=== PATIENT | female | born 1950 | race Caucasian/White ===

== ENCOUNTER 2018-06-30 11:42 | Observation (INO) | payer OTHER ==
--- NOTE | 2018-06-30 12:03 | EDPHY ---
H & P Stated Complaint: palpitations dizzy nausea sob x 2-3 days, gen weakness Time Seen by Provider: 06/30/18 12:02 - Personal History Tetanus Vaccine Date: 2000 - Medical/Surgical History Hx Asthma: Yes Hx Chronic Respiratory Disease: No Hx Diabetes: No Hx Cardiac Disease: No Hx Renal Disease: No Hx Cirrhosis: No Hx Alcoholism: No Hx HIV/AIDS: No Hx Splenectomy or Spleen Trauma: No Other PMH: ASTHMA, PTSD, ORTHO SURG, inner ear issue - Social History Smoking Status: Never smoked Constitutional: Initial Vital Signs Temperature (C) 36.0 C 06/30/18 11:45 Heart Rate 86 06/30/18 11:45 Respiratory Rate 20 06/30/18 11:45 Blood Pressure 85/64 L 06/30/18 11:45 O2 Sat (%) 91 L 06/30/18 11:45 O2 Delivery Mode Room Air Allergies/Adverse Reactions: No Known Allergies Allergy (Verified 03/17/13 20:35) Home Medications: Medication Instructions Recorded Albuterol [Proventil Inhaler HFA 2 puffs IH Q4 PRN 03/17/13 (*)] DULoxetine [Cymbalta 60 MG (*)] 60 mg PO DAILY 03/17/13 Cefuroxime Axetil [Ceftin] 500 mg PO BID #14 tablet 05/19/15 Medical Decision Making ED Course/Re-evaluation: CHIEF COMPLAINT: Rapid heart rate, dizzy, weak, low blood pressure HISTORY OF PRESENT ILLNESS: 68-year-old female who says over the last 15+ years she has had intermittent palpitations and rapid heart rate. She was given a prescription for oral diltiazem several years ago and she use the last 1 yesterday. She has had very persistent rapid heart rate over the last week or 2. It is affecting her significantly in terms of her ability to move around and walk around and do anything since she feels very lightheaded dizzy and weak when she is in a rapid rate which is the majority of the time recently. REVIEW OF SYSTEMS: A comprehensive 10 system review of systems is otherwise negative aside from elements mentioned in the history of present illness and medical decision making. PHYSICAL EXAM: HR, BP, O2 Sat, RR. Temp noted General Appearance: Alert, well hydrated, appropriate, and non-toxic appearing. Head: Atraumatic without scalp tenderness or obvious injury Eyes: Pupils equal, round, reactive to light and accommodation, EOMI, no trauma , no injection. Ears: Clear bilaterally, no perforation, normal landmarks Nose: Atraumatic, no rhinorrhea, clear. Throat: There is no erythema or exudates, no lesions, normal tonsils, mucus membranes moist. Neck: Supple, 2+ carotid upstroke, nontender, no lymphadenopathy. Respiratory: No retractions, no distress, no wheezes, and no accessory muscle use. Lungs are clear to auscultation bilaterally. Cardiovascular: Tachycardia but Regular rate and rhythm, no murmurs, rubs, or gallops. Bilateral carotid, radial, dorsalis pedis, and posterior tibial pulses intact. Good capillary refill all extremities. Gastrointestinal: Abdomen is soft, nontender, non-distended, no masses, no rebound, no guarding, no peritoneal signs. Musculoskeletal: Normal active ROM of all extremities, atraumatic. Neurological: Alert, appropriate, and interactive. The patient has normal DTRs and non-focal cranial nerves, motor, sensory, and cerebellar exam. Skin: No rashes, good turgor, no nodules on palpation. Past medical history: schwannoma, supraventricular tachycardia Past surgical history: None Family history: Noncontributory Social history: , retired, does not abuse tobacco drugs or alcohol DIAGNOSTICS/PROCEDURES/CRITICAL CARE TIME: The 12 lead EKG was interpreted by myself. See hard copy and/or "tracemaster" electronic copy for interpretation. The 1st EKG shows sinus set tachycardia at the rate of about 150 it is regular. After adenosine ablation the EKG shows sinus rhythm rate of about 90. She then temporarily went back into an SVT and then converted back to a sinus mechanism. Procedure: Adenosine ablation Indication: Dysrhythmia Risks, benefits, alternatives discussed with the patient and consent obtained. The patient was on a continuous cardiac technician.The patient was on continuous pulse oximetry. The adenosine ablation was performed with 12mg adenosine. The cardioversion was successful temporarily. The patient tolerated the procedure well with no complications. The procedure was performed by myself. DIFFERENTIAL DIAGNOSIS: The differential diagnosis for the patient's narrow complex tachycardia included but was not limited to various causes of sinus tachycardia such as dehydration and medicines, SVT, atrial flutter, atrial fibrillation, pulmonary causes. MEDICAL DECISION MAKING: This patient is hemodynamically unstable when she is in a rapid rhythm. Once I conferred her she feels a lot better her blood pressure improved significantly. Unfortunately, she is not remaining in sinus mechanism and continues to bounce between SVT in sinus. She states that is how she has felt all week. I did give her 12 mg of adenosine which was successful and cardioversion at least transiently. I have now given her 10 mg of diltiazem started on diltiazem drip. I have spoken to Cardiology we will admit her to be considered for an ablation this week. I have admitted her to the hospitalist. I spent a total of 30 minutes of critical care time including but not limited to obtaining history, performing a physical exam, ordering interventions and the bedside monitoring of those interventions, collecting and interpreting tests and discussion with consultants but not including time spent performing procedures. This is independent of PA or AIRCRAFT WORKER time spent with the patient. 12:40 - I spoke with cardiology and the hospitalist service. She will be admitted to Dr. Lee and Dr. Hurley will consult for possible ablation this week. - Data Points Laboratory Results: 06/30/18 06/30/18 06/30/18 12:24 12:15 12:15 WBC Pending RBC Pending Hgb Pending Hct Pending MCV Pending MCH Pending MCHC Pending RDW Pending Plt Count Pending MPV Pending Neut % (Auto) Pending Lymph % (Auto) Pending Lander % (Auto) Pending Eos % (Auto) Pending Baso % (Auto) Pending Nucleat RBC Rel Count Pending Absolute Neuts (auto) Pending Absolute Lymphs (auto) Pending Absolute Monos (auto) Pending Absolute Eos (auto) Pending Absolute Basos (auto) Pending Absolute Nucleated RBC Pending Immature Gran % Pending Immature Gran # Pending Sodium Pending Potassium Pending Chloride Pending Carbon Dioxide Pending Anion Gap Pending BUN Pending Creatinine Pending Estimated GFR Pending Glucose Pending Calcium Pending POC Troponin I 0.02 ng/mL ng/mL (0.00-0.08) NT-Pro-B Natriuret Pep Pending Medications Given: Discontinued Medications Adenosine (Adenosine) 12 mg IVP EDNOW ONE Stop: 06/30/18 12:21 Last Admin: 06/30/18 12:22 Dose: 12 mg Diltiazem HCl (Cardizem 25 Mg/5 Ml Vial) 10 mg IVP EDNOW ONE Stop: 06/30/18 12:31 Last Admin: 06/30/18 12:32 Dose: 10 mg Sodium Chloride (Ns) 1,000 mls @ 0 mls/hr IV ONCE ONE PRN Reason: Wide Open Stop: 06/30/18 12:31 Last Admin: 06/30/18 12:32 Dose: 1,000 mls Point of Care Test Results: Chemistry 06/30/18 12:24 POC Troponin I 0.02 ng/mL ng/mL (0.00-0.08) Departure - Departure Disposition: [facility] Inpatient Acute Clinical Impression: Supraventricular tachycardia Condition: Fair Report Scribed for: Yariel Whitlock Report Scribed by: Mariajose Sidhu Date of Report: 06/30/18 Time of Report: 12:46
[2018-06-30] MEDS ORDERED: ADENOSINE 6 MG/2 ML VIAL ONE (12:14)
[2018-06-30] MEDS ORDERED: ADENOSINE 6 MG/2 ML VIAL IVP ONE (12:20)
[2018-06-30] MEDS ORDERED: DILTIAZEM 25 MG/5 ML VIAL IVP ONE ×2 (12:28→12:30)
[2018-06-30] MEDS ORDERED: NS 1,000 ML IV ONE (12:30)
[2018-06-30] MEDS ORDERED: DILTIAZEM 125 MG in D5W 125 ML IV ONE (12:31)
[2018-06-30 13:24] LABS: PLATELET COUNT 328 10^3/uL (150-400)
[2018-06-30] MEDS ORDERED: ONDANSETRON DISINTEGRATING 4 MG TAB PO PRN (15:52)
[2018-06-30] MEDS ORDERED: ACETAMINOPHEN 325 MG TAB PO PRN (15:52)
[2018-06-30] MEDS ORDERED: ONDANSETRON 4 MG/2 ML VIAL IVP PRN (15:52)
[2018-06-30] MEDS ORDERED: ALBUTEROL 60 PUFFS/8 GM MDI IH PRN (15:56)
--- NOTE | 2018-06-30 16:54 | GHP ---
DATE OF ADMISSION: 06/30/2018 CHIEF COMPLAINT: Palpitations and dizziness. HISTORY OF PRESENT ILLNESS: Ms. Linda is a 68-year-old with a history of SVT. She said it star emily in her 30s and she had minimal episodes up until a few years ago when they were getting slightly more prevalent so her primary care provider started her on short-acting Dilt to be taken on an as-nee ded basis. In 2014, she was given a bottle of 30 and she just took the last 1 a few weeks ago. Over the recent past, from spring through now, she has noted increasing symptoms of SVT associated with d izziness, lightheadedness and palpitations, which are quite severe in nature. These symptoms did sta rt at about the time she started experiencing vertigo from a vestibular schwannoma that was eventuall y diagnosed. Over the last few days, she has gotten the SVT symptoms every day. It has gotten worse and she has become weaker and weaker since to a point where her drove her into the emergency room today for further evaluation. In the emergency department, she was in SVT with a rapi d rate of 150 and symptomatic. She was given adenosine, which did convert her to sinus rhythm; howev er, she bumped right back into SVT within a few more minutes and the ER physician was having difficul ty keeping her in sinus rhythm. She was eventually given IV Dilt and again converted to sinus rhythm and has since stayed in that rhythm. At this point, she is feeling much better, but is being admitt ed to be evaluated by Cardiology for possible ablation. REVIEW OF SYSTEMS: A 10-point review of systems was done and is noted in the HPI. Pertinent positiv es and negatives. Additionally, she is hard of hearing. No cough or shortness of breath, but she di d have a URI a couple weeks ago. No abdominal complaints, urinary/bladder complaints, or bowel middleton es. She does have some mild arthritis and occasional migraine headaches. PAST MEDICAL HISTORY: 1. SVT. 2. Arthritis. 3. Vestibular schwannoma. 4. Migraine headaches. 5. Exercise-induced asthma. PAST SURGICAL HISTORY: Includes orthopedic surgeries. FAMILY HISTORY: Father with heart attacks and strokes, and testicular and lung cancer. Mother with breast cancer. SOCIAL HISTORY: She is . She and her live in [place]. Her primary care provider i s Dr. Baig. They have 2 biological children and they have legally adopted their grand kids, 1 of whom is special needs and can be stressful. She currently works as an senior financial accountant. She does not smo ke. She does not smoke marijuana. She does enjoy alcohol. She typically drinks whiskey, at least 2 drinks per night. She does note that stress makes her SVT quite a bit worse and recently 1 of her g bong kids in college has been calling her more often and it has been quite stressful on her. MEDICATIONS: Albuterol as needed, diltiazem 30 mg as needed for SVT, Cymbalta 60 mg daily, meloxicam daily for arthritis, topiramate 100 mg daily and trazodone 25-50 mg at night. ALLERGIES: No known drug allergies. PHYSICAL EXAMINATION: VITAL SIGNS: She is afebrile. Heart rate currently 82, blood pressure 122/69 , respirations 16. She is 94% on room air. GENERAL: She is a very pleasant 68-year-old woman. She is in no acute distress. HEENT: Atraumatic. Pupils equal. Extraocular movements intact. Mucous membranes moist. Oropharynx clear. NECK: Supple. No adenopathy. No carotid bruits. HEART: Regu lar rate and rhythm. There is a very soft systolic murmur. LUNGS: Clear bilaterally without wheeze , rhonchi, or rales. SPINE: Nontender to palpation. ABDOMEN: Soft, nontender, nondistended. No m asses. EXTREMITIES: No clubbing, cyanosis, or edema. MUSCULOSKELETAL: No joint effusions or defor mities. NEUROLOGIC: Speech is fluent. She moves all 4 extremities. SKIN: Intact. No rash. PSYC HIATRIC: Mood is appropriate. LABORATORY DATA: CBC is within normal limits. Electrolytes and renal function are normal. BNP is a t 853. Troponin is normal at 0.02. ASSESSMENT AND PLAN: 68-year-old woman presents with worsening recurrent labile SVT that is quite sy mptomatic. 1. SVT. Discussed with Dr. Hurley who will see her in consultation and feels that with this labile S VT she is appropriate to refer her for possible ablation. Will admit her overnight, place her on dil tiazem short acting, check an echocardiogram in the a.m. and discuss with Dr. Austin regarding possible ablation of her SVT. We will start her on diltiazem 30 mg every 8 hours and continue to monitor her on telemetry. 2. Vestibular schwannoma. She does have followup plan scheduled for radiation therapy of this in future. 3. Migraines, currently on Cymbalta and Topamax. 4. Arthritis. Continue her meloxicam. 5. Exercise-induced asthma. She is completely asymptomatic with clear lungs at this time. /[id number]/MODL
--- NOTE | 2018-06-30 18:15 | SOAPPROG ---
[facility] Progress Note Assessment/Plan: Assessment: Cardiology consult performed and dictated. 68 y/o woman who has had intermittent rapid heart racing since her 30's. Last saw a assistant media planner about ten years ago and had stress test and told normal. She has supply of prn PO Diltiazem she takes for her rapid heart episodes. Last seven days, her heart has raced "all day for hours." She is weak, tired and near syncope. Denies CP, TIA sx or PND. She came to ER and was in narrow complex tachycardia at 143bpm probably PSVT and converted to NSR with IV adenosine. She started having salvos of recurrent PSVT and was given IV diltiazem and started on PO Diltiazem 30mg q8hrs and feels better now. Last sense of heart racing was in ER. Denies current shortness of breath or CP. DDX: symptomatic, frequent PSVT PLANL 1)continue Diltiazem 30mg PO q8hrs 2)echo in AM to make sure has not developed a tachycardic medicated CHF although no S3 or gallop or murmur or sign of volume overload seen on physical exam tonight. 3)EP consult- Norman in AM to do SVT ablation hopefully this hospitalization. Keep NPO after MN in case can do tomorrow. Questions answered for Mrs. Linda. Thanks for consult 06/30/18 18:10 Objective: Vital Signs Temp Pulse Resp BP Pulse Ox 36.4 C 82 16 122/69 H 94 06/30/18 14:25 06/30/18 14:25 06/30/18 14:25 06/30/18 14:25 06/30/18 14:25 Laboratory Results 06/30/18 13:13 06/29/18 06/30/18 07/01/18 05:59 05:59 05:59 Intake Total 1000 Balance 1000 ICD10 Worksheet Patient Problems: Problems Problem Status Onset Supraventricular tachycardia Acute Exacerbation of asthma Acute
[2018-06-30] MEDS: DILTIAZEM 30 MG TAB PO SCH (20:21)
[2018-06-30] MEDS: traZODone 50 MG TAB PO SCH (20:21)
[2018-07-01] MEDS: DILTIAZEM 30 MG TAB PO SCH ×2 (06:21→17:18)
--- NOTE | 2018-07-01 10:03 | PDCARPN ---
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 She presented to ED in SVT and converted with Adenosine. Preliminary echo results per my review demonstrate Posterior mitral valve prolapse, at least moderate eccentric MR anteriorly directed with coanda effect and possible flail chordae. Sana states that her PCP has heard a murmur on exam and had recommended she be seen by Cardiology, which had not been done prior to admission. She has no hx of endocarditis, Phen-Fen use. No hx of Rhematic fever. No family hx of valve disease. She admits to exercise intolerance primarily due to onset of SVT. She denies nino, pnd, orthopnea or LE edema. Reviewed/Discussed With: family, multidisciplinary team Time Spent with Patient: greater than 25 minutes Time Spent with Patient: Greater than 25 minutes spent on this patients care, greater than 50% of time spent counseling, educating, and coordinating care regarding the above mentioned plan. Objective: Vital Signs (8 Hrs) Temp Pulse Resp BP Pulse Ox 07/01/18 08:00 36.8 C 76 15 145/70 H 96 07/01/18 06:21 76 127/104 H 07/01/18 04:00 36.6 C 95 20 127/104 H 94 Intake/Output (24 Hrs) 06/30/18 07/01/18 07/02/18 05:59 05:59 05:59 Intake Total 1500 Balance 1500 Intake: Oral (ml) 500 IV Infused (ml) 1000 Other: Weight 49.3 kg Number of Voids 1 Result Diagrams: 06/30/18 13:13 06/30/18 12:15 - Physical Exam Ears, Nose, Mouth, Throat: moist mucous membranes Cardiovascular: regular rate and rhythm, no rubs, no gallops, systolic murmur, pulses symmetric bilat Respiratory: clear to auscultate bilat Neurologic: AAOx3, CN II-XII grossly intact Psychiatric: cooperative, interactive, following commands ICD10 Worksheet Patient Problems: Problems Problem Status Onset Supraventricular tachycardia Acute Exacerbation of asthma Acute
--- NOTE | 2018-07-01 13:01 | PDCARPN ---
Cardiology Progress Note Chief Complaint: SVT Assessment/Plan: Assessment: 1. Supraventricular tachycardia: Intermittent episodes of SVT since her early 30s, increasing frequency since Spring 2017. She has maintained NSR overnight on Diltiazem. ECG upon admission demonstrates long RP tachycardia. Differential diagnoses include atypical AVNRT vs. orthodromic AVRT. 2. Posterior MV prolapse: Possible ruptured chordae noted on TTE this AM, plan for MANDIE with Dr. Small for further evaluation today 3. Vestibular schwannoma: Plans for radiation therapy in the near future Plan: 1. MANDIE today with Dr. Small 2. Pending the results of today's MANDIE, we will plan for SVT ablation with Dr. Austin in 3-4 weeks. Risks of this procedure and alternative options for management of her SVT were reviewed in detail with Sana and her 07/01/18 13:02 Subjective: Patient reports feeling much better overnight since maintaining NSR. She is eager for SVT ablation. Reviewed/Discussed With: multidisciplinary team Time Spent with Patient: greater than 35 minutes Time Spent with Patient: Greater than 35 minutes spent on this patients care, greater than 50% of time spent counseling, educating, and coordinating care regarding the above mentioned plan. Objective: Vital Signs (8 Hrs) Temp Pulse Resp BP Pulse Ox 07/01/18 11:17 36.5 C 76 18 134/61 H 95 07/01/18 08:00 36.8 C 76 15 145/70 H 96 07/01/18 06:21 76 127/104 H Intake/Output (24 Hrs) 06/30/18 07/01/18 07/02/18 05:59 05:59 05:59 Intake Total 1500 Balance 1500 Intake: Oral (ml) 500 IV Infused (ml) 1000 Other: Weight 49.3 kg Number of Voids 1 Result Diagrams: 06/30/18 13:13 06/30/18 12:15 Telemetry: NSR overnight Echocardiogram: MV prolapse with possible ruptured chordae - Physical Exam Constitutional: WDWN, healthy appearing, no apparent distress Ears, Nose, Mouth, Throat: moist mucous membranes, no oral ulcers, no thrush Cardiovascular: regular rate and rhythm, no rubs, no gallops, systolic murmur Peripheral Pulses: 2+: dorsalis-pedis (R), dorsalis-pedis (L) Respiratory: clear to auscultate bilat, no crackles, no wheezes Gastrointestinal: normoactive bowel sounds, no tenderness, no masses Skin: no rashes, no abrasions, no ulcers, warm, no edema Neurologic: AAOx3, CN II-XII grossly intact Psychiatric: cooperative, interactive, following commands, not anxious ICD10 Worksheet Patient Problems: Problems Problem Status Onset Supraventricular tachycardia Acute Exacerbation of asthma Acute
--- NOTE | 2018-07-01 13:07 | GCON ---
CARDIOLOGY CONSULTATION DATE OF CONSULTATION: 06/30/2018 CHIEF COMPLAINT: Symptomatic heart racing, especially in the last week, consistent with PSVT. HISTORY OF PRESENT ILLNESS: The patient is a 68-year-old woman who reports she has had tachycardia s nataly the age of 31. In the past, it has been very infrequent, and she takes p.r.n. diltiazem. In th e last week, she has had almost nonstop intermittent tachycardia, sometimes lasting for 3-4 hours at a time. She feels poorly and feels very weak and has near syncope and is dizzy. She denies chest pa in, TIA symptoms, or shortness of breath. In the emergency room, she was in a narrow complex tachyca rdia at 143 beats per minute, probably PSVT. She was given IV adenosine by the ER staff, which conve rted her to sinus rhythm. She then had frequent salvos of recurrent PSVT and was given IV diltiazem and has done well since then. Currently, she is asymptomatic. She reports she saw mri specialist 10 y ears ago and had a stress test which she was told was okay. PAST MEDICAL HISTORY: Probable PSVT x37 years, migraines, and exercise-induced asthma. PAST SURGICAL HISTORY: None. MEDICATIONS: Diltiazem p.r.n. ALLERGIES: No known drug allergies. SOCIAL HISTORY: The patient denies tobacco or excessive alcohol intake. FAMILY HISTORY: Positive for premature coronary artery disease. REVIEW OF SYSTEMS: The patient reports no recent fevers, chills, or GI bleed symptoms such as hemate mesis, melena, or bright red blood per rectum. Rest of 10-point review of systems is negative. PHYSICAL EXAM: VITAL SIGNS: Afebrile, pulse 82 and regular, blood pressure 122/69, respirations 20, 94% on room air. Weight 49.3 kg. GENERAL: A normal-appearing woman in no acute distress without c hest pain or using accessory respiratory muscles. EYES: Pupils equal and reactive to light. ENT: Oral mucosa with no cyanosis. NECK: Jugular venous pressure to 7 cm. Carotid pulses 2+ bilaterally with no obvious bruits. No nuchal rigidity. LUNGS: Clear to auscultation bilaterally without rale s, rhonchi, or wheezing. HEART: Normal PMI. Regular rate and rhythm with no obvious murmurs or S3. ABDOMINAL EXAM: Soft and nontender. No hepatosplenomegaly. No guarding or rebound. EXTREMITIES: 2+ peripheral pulses including femoral and pedal pulses. No edema noted. MUSCULOSKELETAL: No sco liosis. NEURO: Normal affect and mood. SKIN: No bleeding or cyanosis. LABORATORY: White count 9.3, hematocrit 39, platelets 328,000, MCV 92. Sodium 139, potassium 4.3, c hloride 104, bicarb 23, BUN 21, creatinine 1.0, glucose 126. NT proBNP level 853. Troponin 0.02. T SH 2.7. IMPRESSION: A 68-year-old woman with tachycardias for the last 37 years, worse in the last week, con sistent with symptomatic paroxysmal supraventricular tachycardia. She is currently in sinus rhythm w ith no obvious signs of angina or decompensated heart failure. I think she would be best served with an electrophysiology study and probable supraventricular tachycardia ablation. RECOMMENDATIONS: 1. Would admit to telemetry and follow her heart rhythm closely. 2. Would put on diltiazem short-acting 30 mg tablets q.8 hours. 3. Would get an echocardiogram in the morning to confirm structurally normal heart. 4. Will ask my EP colleague, Dr. Phan Austin, to consult and discuss with patient treatment options f or SVT, in particular SVT ablation, in the near future. /[id number]/MODL
[2018-07-01] MEDS ORDERED: PROPOFOL/EMULSION 500 MG/50 ML BOTTLE IV ONE (13:59)
--- NOTE | 2018-07-01 14:12 | ASMTCMCOM ---
CM Note CM Note Notes: 07/01/2018 Case Management Note Discussed with MD today. Pt admitted for SVT, hypotension, and weakness. There are no therapies ordered at this time. There are no discharge case management needs identified d/t pt age, marital status and independence with ADL's prior to admission. Case Management d/c poc: independent with follow up as directed. Case Management available if needs change. Date Signed: 07/01/2018 02:11 PM Electronically Signed By:Lucille Sosa RN
--- NOTE | 2018-07-01 14:12 | PDANEPAE ---
ANE Past Medical History - Cardiovascular History Hx Hypertension: No Hx Arrhythmias: Yes Hx Chest Pain: No Hx Coronary Artery / Peripheral Vascular Disease: No Hx CHF / Valvular Disease: Yes Hx Palpitations: Yes Cardiovascular History Comment: Symptomatic SVT. 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 - Endocrine History Hx Diabetes: No Hypothyroid: No Hyperthyroid: No Obesity: no - Renal History Hx Renal Disorders: No - Liver History Hx Hepatic Disorders: No - Neurological & Psychiatric Hx Hx Neurological and Psychiatric Disorders: Yes - Chronic Pain History Chronic Pain: No ANE Review of Systems Review of systems is: negative Review of Systems: - Exercise capacity Exercise capacity: >=4 METS ANE Patient History - Allergies Allergies/Adverse Reactions: No Known Allergies Allergy (Verified 06/30/18 12:56) - Home Medications Home medications: home medication list seen and reviewed Home Medications: Albuterol [Proventil Inhaler HFA (*)] 2 puffs IH Q4 PRN 03/17/13 [Last Taken ] DULoxetine [Cymbalta 60 MG (*)] 60 mg PO DAILY 03/17/13 [Last Taken 06/30/18] Diltiazem [Cardizem Immediate Release] 30 mg PO Q4H PRN 06/30/18 [Last Taken 05/06] Meloxicam 15 mg PO DAILY 06/30/18 [Last Taken 06/30/18] Topiramate [Topamax 100MG (*)] 100 mg PO DAILY 06/30/18 [Last Taken 06/30/18] traZODone [traZODONE 50MG (*)] 25 - 50 mg PO HS 06/30/18 [Last Taken 06/29/18] - NPO status NPO Status: no food or drink >8 hours - Smoking Hx Smoking Status: Never smoked ANE Labs/Vital Signs - Labs Result Diagrams: 06/30/18 13:13 06/30/18 12:15 - Vital Signs Vital Signs: reviewed preoperatively; see RN documention for details Blood Pressure: 134/61 Heart Rate: 76 Respiratory Rate: 18 O2 Sat (%): 95 Height: 160.02 cm Weight: 49.3 kg ANE Physical Exam - Airway Neck exam: FROM Mallampati Score: Class 3 Mouth exam: dentures - Pulmonary Pulmonary: clear to auscultation - Cardiovascular Cardiovascular: regular rate and rhythym - ASA Status ASA Status: III ANE Anesthesia Plan Anesthesia Plan: MAC
--- NOTE | 2018-07-01 14:15 | PDHPUP ---
History & Physical Update H&P update statement: This history and physical update is based on an assessment of the patient which was completed after admission or registration (within 24 hours), but prior to the surgery/procedure. H&P update: H&P reviewed & patient examined, no change in patient's condition since H&P completed
--- NOTE | 2018-07-01 15:09 | POSTANESTH ---
Post Anesthetic Evaluation Cardiovascular Status: Normal, Stable Respiratory Status: Normal, Stable Level of Consciousness/Mental Status: Can Participate in Eval, Moderately Sleepy Pain Control: Adequate, Prn Tx Ordered Nausea/Vomiting Control: Adequate, Prn Tx Ordered Complications Possibly Related to Anesthesia: None Noted
[2018-07-01] MEDS: TOPIRAMATE 100 MG TAB PO SCH (17:18)
[2018-07-01] MEDS: DULoxetine 60 MG CAP PO SCH (17:18)
--- NOTE | 2018-07-01 17:51 | ECHO ---
[email or web address] [place] [id number] Main: [phone] Fax: Transthoracic Echocardiogram Name: JC RUSSO MR#: [id number] Study Date: 07/01/2018 Study Time: 02:15 PM Date of : 1950 Age: 68 year(s) Height: ( ) Weight: ( ) BSA: Gender: Female Examination: MANDIE Indication: Mitral regurgitation Image Quality: Contrast: Requested by: Papito Small BP: / Heart Rate: Rhythm: Indication: Mitral regurgitation Procedure Staff Documentation Nurse: Balta Rodríguez RDCS Reading Physician: Papito Small MD Requesting Provider: Measurements: Chambers Valvular Assessment AV/MV Valvular Assessment TV/PV Normal Normal Normal Name Value Range Name Value Range Name Value Range Continued Measurements: (No Signature Object) Patient: JC RUSSO Study Date: 07/01/2018 Page 1 of 1 02:15 PM [id number]
--- NOTE | 2018-07-01 17:55 | ECHO ---
[email or web address] [address] [address] Main: [phone] Fax: Transthoracic Echocardiogram Name: JC RUSSO MR#: [id number] Study Date: 07/01/2018 Study Time: 08:04 AM Date of : 1950 Age: 68 year(s) Height: 160 cm (63 in.) Weight: 48.99 kg (108 lb.) BSA: 1.49 m2 Gender: Female Examination: Echo Indication: Supraventricular Tachycardia Image Quality: Adequate Contrast: Requested by: Radha Mckeon BP: 127 mmHg/104 mmHg Heart Rate: Rhythm: Indication: Supraventricular Tachycardia Procedure Staff Production Line Mechanic: Demi Javed [facility] Reading Physician: Papito Small MD Requesting Provider: Conclusions: Normal size left ventricle. No LV hypertrophy. Normal global systolic LV function. EF is 63 %. Normal diastolic LV function. Normal RV function. The left atrium is normal in size. The right atrium is normal in size. There is mild thickening of the mitral valve leaflets. Bi-leaflet prolapse with the posterior leaflet more severe. Possible flail posterior leaflet versus chordea rupture. Moderate to severe mitral regurgitation which anteriorly directed consistent with posterior leaflet pathology. There is mild pulmonary vein reversal. No mitral stenosis. Right ventricular systolic pressure measures 27mmHg. The pulmonary artery pressure is normal. Normal size ascending aorta measuring 2.7 cm. No pericardial effusion. Measurements: Chambers Valvular Assessment AV/MV Valvular Assessment TV/PV Normal Normal Normal Name Value Range Name Value Range Name Value Range Ao Tess (MM): 3.2 cm (2.2 cm-3.7 AV Vmax: 0.88 m/s (1 m/s-1.7 TR Vmax: 2.36 mm/s ( - ) cm) m/s) TR PGmax: 22 mmHg ( - ) IVSd (2D): 1.1 cm (0.6 cm-1.1 AV maxP mmHg ( - ) syst. PAP: 27 mmHg ( - ) cm) LVOT Vmax: 0.76 m/s (0.7 m/s-1.1 PV Vmax: 0.48 m/s (0.6 m/s-0.9 LVDd (2D): 4.2 cm (3.9 cm-5.3 m/s) m/s) cm) DAVID (Vmax): 2.7 cm2 ( - ) PV PGmax: 1 mmHg ( - ) LVDs (2D): 2.8 cm (2.1 cm-4 MV E Vmax: 0.78 m/s ( - ) cm) MV A Vmax: 0.74 m/s ( - ) LVPWd (2D): 0.9 cm ( - ) MV E/A: 1.05 ( - ) Patient: JC RUSSO Study Date: 07/01/2018 Page 1 of 2 08:04 AM LVOTd 2.0 cm 2.0 cm mm LVEF (MOD4): 63 % (>=55 %) RVDd(2D): 2.5 cm (1.9 cm-3.8 cmmm) Continued Measurements: Chambers Valvular Assessment AV/MV Valvular Assessment TV/PV Name Value Name Value Name Value LADs: 2.9 cm MV DecTime: 208 m/s CVP (est.): 5 mmHg LADs Lon.0 cm MV E' Septal: 0.05 m/s LA Area: 13.5 cm2 MV E/E' Septal: 16.80 LA Volume: 37 ml MV E/E' Lateral: 17.90 LA Volume Index: 24.8 ml/m2 MR Vena Contracta: 0.6 cm TAPSE: 1.6 cm MR PISA radius: 7 mm RA Area: 9.2 cm2 Additional Vessels Name Value Ao Ascendin.7 cm Findings: Left Ventricle: Normal size left ventricle. No LV hypertrophy. Normal global systolic LV function. EF is 63 %. No regional wall motion abnormality. Normal diastolic LV function. Right Ventricle: Normal size right ventricle. Normal RV function. Left Atrium: The left atrium is normal in size. Right Atrium: The right atrium is normal in size. Mitral Valve: There is mild thickening of the mitral valve leaflets. Bi-leaflet prolapse with the posterior leaflet more severe. Possible flail posterior leaflet versus chordea rupture. Moderate to severe mitral regurgitation which anteriorly directed consistent with posterior leaflet pathology. There is mild pulmonary vein reversal. No mitral stenosis. Aortic Valve: The aortic valve is tri-leaflet. There is no aortic valve regurgitation. No aortic valve stenosis is present. Tricuspid Valve: The tricuspid valve appears normal. Mild tricuspid regurgitation is present. Right ventricular systolic pressure measures 27mmHg. The pulmonary artery pressure is normal. Pulmonic Valve: The pulmonic valve is normal in appearance. There is no pulmonic regurgitation seen. Aorta: Normal size aortic root measuring 3.2 cm. Normal size ascending aorta measuring 2.7 cm. IVC: Normal size and course of the IVC. Pericardium: No pericardial effusion. (No Signature Object) Patient: JC RUSSO Study Date: 07/01/2018 Page 2 of 2 08:04 AM [id number]
[2018-07-01] MEDS: traZODone 50 MG TAB PO SCH (21:49)
[2018-07-02] MEDS: DULoxetine 60 MG CAP PO SCH (08:25)
[2018-07-02] MEDS: TOPIRAMATE 100 MG TAB PO SCH (08:25)
--- NOTE | 2018-07-02 13:29 | HOSPPROG ---
Hospitalist Progress Note Assessment/Plan: 68-year-old admitted with recurrent SVT, stable after 24 hr on p.o. Diltiazem follow-up MANDIE did show severe mitral valve disease and patient likely would benefit from surgery. This may be contributing to her recurrent SVT. Plan will be to do exercise stress test today followed by a cardiothoracic surgery consult regarding timing of surgery and she will additionally need a angiogram prior to surgery. # mitral valve disease * Await CTS consult * DC after consult if okay by Cardiology and surgery on diltiazem p.o. Depending on timing of surgery * Will put in tentative orders for DC can cancel discharge if surgery would like patient to stay here prior to surgery. # recurrent SVT, will continue diltiazem p.o. At current dose * Follow-up electrophysiology after mitral valve surgery Subjective: Patient doing well she is comfortable awaiting tests and consults Objective: Vital Signs Temp Pulse Resp BP Pulse Ox 37.0 C 78 19 148/70 H 96 07/02/18 11:48 07/02/18 11:48 07/02/18 11:48 07/02/18 11:48 07/02/18 11:48 Laboratory Results 06/30/18 13:13 07/01/18 07/02/18 07/03/18 05:59 05:59 05:59 Intake Total 1500 300 Output Total 200 545 Balance 1500 100 -545 - Physical Exam Constitutional: not in pain Respiratory: no respiratory distress Neurologic: AAOx3 Psychiatric: interacting appropriately ICD10 Worksheet Patient Problems: Problems Problem Status Onset Supraventricular tachycardia Acute Exacerbation of asthma Acute
--- NOTE | 2018-07-02 14:30 | CPR ---
DATE OF PROCEDURE: 07/02/2018 PROCEDURE: Exercise treadmill stress test. REASON FOR TEST: 1. Shortness of breath. 2. Mitral valve disease. 3. Workup prior to possible surgery. Resting EKG shows a regular sinus rhythm with a rare PVC. Heart rate 80, blood pressure 108/70. Debo or to exercise, she is asymptomatic. STRESS PORTION: She was exercised according to the Luis protocol for a total of 6 minutes reaching her predicted 85% max of 132 with peak heart rate 136. Met level reached 7.1. Max heart rate 36, bl ood pressure 140/78. She rated the exercise as 7 to 8/10 at peak exercise. There was in the lateral leads at peak exercise about 1 mm depression. RECOVERY: She did spontaneously recover. Resting EKG return to pre-exercise. She had no shortness of breath, chest pain, or dizziness with the exercise test. Resting recovery blood pressure 110/70, resting heart rate 97. At this time, she currently is stable to return to her room. /[id number]/MODL
[2018-07-02] MEDS: DILTIAZEM 30 MG TAB PO SCH (16:08)
[2018-07-02 16:28] VITALS: BP 159/64
--- NOTE | 2018-07-02 16:37 | PDSURGCRDT ---
CardioThoracic Surgery Note - Objective Objective: Vital Signs Temp Pulse Resp BP Pulse Ox 36.7 C 81 18 159/64 H 94 07/02/18 16:00 07/02/18 16:08 07/02/18 16:00 07/02/18 16:00 07/02/18 16:00 Laboratory Results 06/30/18 13:13 07/01/18 07/02/18 07/03/18 05:59 05:59 05:59 Intake Total 1500 300 Output Total 200 545 Balance 1500 100 -545 Exam Temp Pulse Resp BP Pulse Ox 36.7 C 81 18 159/64 H 94 07/02/18 16:00 07/02/18 16:08 07/02/18 16:00 07/02/18 16:00 07/02/18 16:00 Text Box - Additional Text Additional Text: I was asked to see this pleasant 68 year old woman for evaluation of her mitral regurgitation. She was admitted for SVT and found to have severe mitral regurgitation with a torn chordae to posterior leaflet. I have recommended mitral valve repair. We discussed the risks, benefits and alternatives and she is agreeable to proceed. Left heart cath and SVT ablation are pending. We will contact her as an outpatient to schedule surgical date.
--- NOTE | 2018-07-02 18:27 | GDS ---
DIAGNOSES: 1. Recurrent supraventricular tachycardia, controlled on oral diltiazem. 2. Mitral valve disease. PROCEDURES DONE: Echocardiogram and transesophageal echocardiogram. CONSULTATIONS: Cardiology, Dr. Papito Small, and cardiothoracic surgery, Dr. Amadeo Gibson. HOSPITAL COURSE: Ms. Linda is a 68-year-old with a long history of SVT. Over the last several months, she has had increasing symptoms associated with some shortness of breath and lightheadedness. She came into the emergency department and had SVT. It was interrupted by adenosine into sinus rhy thm. However, she immediately went back into SVT and was admitted for further treatment and evaluati on of this. She was initially placed on IV diltiazem and transitioned to oral diltiazem with good co ntrol of her SVT. An echocardiogram revealed an abnormal mitral valve, so she underwent MANDIE that not ed an abnormal mitral valve with possible chordae rupture. Cardiothoracic Surgery consulted and felt she needed mitral valve surgery. She will need further evaluation prior to that, as well as an abla tion. She will go home with further outpatient evaluation and workup including an angiogram and an E PS study, followed by mitral valve surgery by Dr. Gibson. CONDITION ON DISCHARGE: Good. Vital signs are stable. She has been in sinus rhythm since arrival, on p.o. diltiazem. DISCHARGE MEDICATION: Please see the discharge medication list. FOLLOWUP: [facility] will call the patient to schedule her EPS study and angiogram[facility] her mitral valve surgery. Total time spent with patient on day of discharge and coordination of care is 35 minutes. /[id number]/MODL
== END 2018-07-02 18:40 | disposition home or self-care (01) ==
LOC: F2W 14:50
PROVIDERS: ADMIT Internal Medicine; ATTEND Internal Medicine
PROC: 5A2204Z Restoration of Cardiac Rhythm, Single (ICD-10-PCS; principal; 2018-06-30)
PROC: B246ZZ4 Ultrasonography of Right and Left Heart, Transesophageal (ICD-10-PCS; 2018-07-01)
DX: I47.1 Supraventricular tachycardia (principal); I34.0 Nonrheumatic mitral (valve) insufficiency; I51.1 Rupture of chordae tendineae, not elsewhere classified; J45.990 Exercise induced bronchospasm; F43.12 Post-traumatic stress disorder, chronic; G43.909 Migraine, unspecified, not intractable, without status migrainosus; M19.91 Primary osteoarthritis, unspecified site; D36.11 Benign neoplasm of peripheral nerves and autonomic nervous system of face, head, and neck
CPT/HCPCS: 93017; 93306; 93312; 96361; 96374; 96375; 99291; G0378; 84484-ER; J0153; J2704

== ENCOUNTER → 2018-07-10 | Day surgery (SDC) | payer OTHER ==
[~2018-07-10] MED LIST: ASPIRIN EC 325 MG TAB PO ONE; ATROPINE SULFATE 1 MG/10 ML SYR IVP PRN; DIAZEPAM 5 MG TAB PO ONE; FAMOTIDINE 20 MG TAB PO ONE; HYDROCODONE/APAP 5/325 TAB PO PRN; IOPAMIDOL (ISOVUE 370) 100 ML BTL IV ONE; LIDOCAINE 1% 300 MG/30 ML SDV ONE; MIDAZOLAM 2 MG/2 ML VIAL ONE; NITROGLYCERIN 0.4 MG BTL SL PRN; NS 1,000 ML IV ONE; ONDANSETRON 4 MG/2 ML VIAL IVP PRN; OXYCODONE/APAP 5/325 TAB PO PRN; diphenhydrAMINE 25 MG CAP PO ONE; fentaNYL 100 MCG/2 ML INJ ONE; hydrALAZINE 20 MG/ML VIAL ONE
[2018-07-10 08:41] LABS: PLATELET COUNT 299 10^3/uL (150-400)
[2018-07-10 08:50] LABS: INR 1.03 (0.83-1.16); PROTIME(PATIENT) 13.7 SEC (12.0-15.0)
--- NOTE | 2018-07-10 09:41 | PDPROPOC ---
Sedation Plan of Care Sedation Plan of Care: mental status noted, patient educated of risks, benefits , alternatives, patient can tolerate sedation ASA Classification: ASA 2 Planned drugs: fentanyl, midazolam Mallampati Score: Class 2 Mallampati Reference Image: Patient passed 3-3-2 rule?: Yes
--- NOTE | 2018-07-10 09:42 | PDHPUP ---
History & Physical Update H&P update statement: This history and physical update is based on an assessment of the patient which was completed after admission or registration (within 24 hours), but prior to the surgery/procedure. Sana is here for Left and Right Heart Cath in anticipation of MV repair with Dr. Thurston. H&P update: H&P reviewed & patient examined, no change in patient's condition since H&P completed
--- NOTE | 2018-07-10 11:36 | CPIP ---
DATE OF PROCEDURE: 07/10/2018 PROCEDURE PERFORMED: Left and right heart catheterization. INDICATION FOR PROCEDURE: Preoperative left and right heart catheterization, preoperative evaluation in anticipation of minimally invasive mitral valve repair in the setting of flail mitral leaflet wit h posterior prolapse, severe mitral regurgitation. DESCRIPTION OF PROCEDURE: After informed consent was obtained, Ms. Linda was brought to the [facility] catheterization lab where she was prepped and draped in a sterile fashion. Using 1% lidocaine, the right groin was anesthetized. Using the modified Seldinger technique and micropuncture technique , a 6-[place] catheter was placed into the right common femoral artery without complications. Medial to the right femoral artery sheath placement, lidocaine was placed approximately a centimeter distally and medially from the arterial sheath site. A 7-[place] sheath was placed in the right commo n femoral vein with a modified Seldinger technique without complications. A [place] catheter was u sed to perform right heart catheterization. Hemodynamic results include pulmonary artery pressure of 31/15 with a mean of 22, pulmonary capillary wedge pressure of 11, RV pressure of 33/3 with a mean of 10. Right atrial pressure mean of 6. Card iac index of 3.86. Cardiac output of 5.63 L/minute. [place] catheter was removed without complications. Left heart catheterization. JL4 catheter was used to take images of the left coronary anatomy in mul tiple projections. The JL4 catheter was exchanged over a guidewire for a JR4 catheter. JR4 catheter was used to cannulate the right coronary artery. Images of the right coronary artery were obtained in multiple projections. The JR4 catheter was exchanged over a guidewire for an angled pigtail kayla ter. Angled pigtail catheter was used to cross the aortic valve. LVEDP was assessed. Left ventricu logram was performed. Aortic gradient was assessed on pull-back. Angled pigtail catheter was remove d over a guidewire without complications. Angiography of the right common femoral artery site demons trated appropriate placement of the 6-[place] sheath above the bifurcation and below the inguinal liga ment. Hemodynamics demonstrated LVEF of 60% to 65%. There was evidence of moderate to severe mitral regurg itation. LVEDP elevated at 22 mmHg. FINDINGS: 1. Left main normal size and caliber bifurcates into left anterior descending and left circumflex co ronary artery. There is no evidence of coronary disease in the left main. 2. Left anterior descending artery has no evidence of coronary disease. There is a moderate-sized f irst diagonal branch with no evidence of coronary disease. 3. Circumflex vessel is a nondominant vessel. There is a moderate size first obtuse marginal branch . There is no evidence of coronary disease within the circumflex or obtuse marginal branch. 4. The right coronary artery is a dominant vessel, large caliber, that bifurcates into PDA and PLV b ranch. There is no evidence of coronary disease within the right coronary artery. CONCLUSIONS: 1. Normal coronary arteries. 2. Normal left ventricular function. 3. Moderate to severe mitral regurgitation. 4. Elevated LVEDP at 22 mmHg. 5. Essentially normal pulmonary pressures and pulmonary capillary wedge pressure of 12. PLAN: 1. Patient Angio-Seal deployment after blood pressure has been controlled. She has recei woo hydralazine 5 mg IV x2. 2. No indication for bypass graft during upcoming mitral valve repair. 3. Patient will be brought to [facility] and recover and be discharged home later today. /[id number]/MODL
--- NOTE | 2018-07-10 17:03 | CPEKG ---
Test Reason : OPEN Blood Pressure : / mmHG Vent. Rate : 066 BPM Atrial Rate : 066 BPM P-R Int : 170 ms QRS Dur : 091 ms QT Int : 434 ms P-R-T Axes : 082 067 061 degrees QTc Int : 455 ms Sinus rhythm Ventricular premature complex Borderline ST depression, anterolateral leads compared with 06/30/2018 NSR has been restored Confirmed by Ruth Ann Newell ([id number]) on 07/10/2018 5:03:15 PM Referred By: Papito Small Confirmed By:Ruth Ann Newell
== END | disposition home or self-care (01) ==
LOC: FCATH 08:00
PROVIDERS: ATTEND Internal Medicine Cardiovascular Disease
DX: Z01.810 Encounter for preprocedural cardiovascular examination (principal); I34.0 Nonrheumatic mitral (valve) insufficiency
CPT/HCPCS: C1760; J0360; J1644; J2250; J3010; Q9967

== ENCOUNTER 2018-07-15 09:06 | Observation (INO) | payer OTHER ==
[2018-07-15] MEDS ORDERED: NS 1,000 ML IV ONE (09:10)
[2018-07-15 09:48] LABS: PLATELET COUNT 221 10^3/uL (150-400)
[2018-07-15 09:59] LABS: INR 0.97 (0.83-1.16); PROTIME(PATIENT) 13.1 SEC (12.0-15.0)
--- NOTE | 2018-07-15 11:32 | PDGENHP ---
History & Physical Chief Complaint: svt Relevant Physical Exam: s1s2 cta ao3 Cardiorespiratory Assessment: for svt ablation
[2018-07-15] MEDS ORDERED: HEPARIN 10,000 UNIT/10 ML MDV (1,000 UNIT/ML) ONE (11:38)
[2018-07-15] MEDS ORDERED: LIDOCAINE 1% 300 MG/30 ML SDV ONE (11:38)
[2018-07-15] MEDS ORDERED: BUPIVACAINE 0.75% 10 ML SDV ONE (11:38)
[2018-07-15] MEDS ORDERED: ISOPROTERENOL HCL/D5W 0.2 MG/50 ML BAG IV ONE ×2 (11:39→14:15)
[2018-07-15] MEDS ORDERED: MIDAZOLAM 2 MG/2 ML VIAL IVP ONE (11:58)
[2018-07-15] MEDS ORDERED: ONDANSETRON 4 MG/2 ML VIAL IVP PRN (11:58)
[2018-07-15] MEDS ORDERED: ALBUTEROL 3 ML DEYVIAL IH PRN (11:58)
[2018-07-15] MEDS ORDERED: NALOXONE HCL 0.4 MG/ML INJ IVP PRN (11:58)
[2018-07-15] MEDS ORDERED: fentaNYL 100 MCG/2 ML INJ IVP PRN (11:58)
[2018-07-15] MEDS ORDERED: ACETAMINOPHEN 500 MG TAB PO PRN (11:58)
[2018-07-15] MEDS ORDERED: DEXAMETHASONE 4 MG/ML VIAL IVP PRN (11:58)
[2018-07-15] MEDS ORDERED: HYDROCODONE/APAP 5/325 TAB PO PRN (11:58)
--- NOTE | 2018-07-15 11:59 | PDANEPAE ---
ANE History of Present Illness EP Study ANE Past Medical History - Cardiovascular History Hx Hypertension: No Hx Arrhythmias: Yes Hx Chest Pain: No Hx Coronary Artery / Peripheral Vascular Disease: No Hx CHF / Valvular Disease: Yes Hx Palpitations: Yes Cardiovascular History Comment: Symptomatic SVT. 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 - Endocrine History Hx Diabetes: No - Renal History Hx Renal Disorders: No - Liver History Hx Hepatic Disorders: No - Neurological & Psychiatric Hx Hx Neurological and Psychiatric Disorders: Yes - Chronic Pain History Chronic Pain: No ANE Review of Systems Review of Systems: ANE Patient History - Allergies Allergies/Adverse Reactions: No Known Allergies Allergy (Verified 06/30/18 12:56) - Home Medications Home Medications: Albuterol [Proventil Inhaler HFA (*)] 2 puffs IH Q4 PRN 03/17/13 [Last Taken 1 Day Ago ~07/09/18] DULoxetine [Cymbalta 60 MG (*)] 60 mg PO DAILY 03/17/13 [Last Taken 07/15/18 05: 50] Meloxicam 15 mg PO DAILY 06/30/18 [Last Taken 07/15/18 05:50] Topiramate [Topamax 100MG (*)] 100 mg PO DAILY 06/30/18 [Last Taken 07/15/18 05: 50] traZODone [traZODONE 50MG (*)] 25 - 50 mg PO HS 06/30/18 [Last Taken 07/14/18 23 :00] Naproxen Sodium [Aleve 220 MG (*)] 220 mg PO DAILY PRN 07/04/18 [Last Taken 1 Day Ago ~07/09/18] - Smoking Hx Smoking Status: Never smoked ANE Labs/Vital Signs - Labs Result Diagrams: 07/15/18 09:20 07/15/18 09:20 - Vital Signs Height: 160.02 cm Weight: 48.988 kg ANE Physical Exam - Airway Neck exam: FROM Mallampati Score: Class 2 Mouth exam: normal dental/mouth exam - Pulmonary Pulmonary: clear to auscultation - Cardiovascular Cardiovascular: regular rate and rhythym - ASA Status ASA Status: III ANE Anesthesia Plan Anesthesia Plan: general endotracheal anesthesia
[2018-07-15] MEDS ORDERED: MIDAZOLAM 2 MG/2 ML VIAL ONE (12:05)
[2018-07-15] MEDS ORDERED: PROPOFOL 200 MG/20 ML VIAL ONE (12:06)
[2018-07-15] MEDS ORDERED: ROCURONIUM 50 MG/5 ML VIAL ONE (12:06)
[2018-07-15] MEDS ORDERED: HEPARIN/DEXTROSE 25,000 UNIT/500 ML BAG ONE (12:58)
[2018-07-15] MEDS ORDERED: IOPAMIDOL (ISOVUE-300) 100 ML BTL ONE (12:59)
[2018-07-15] MEDS ORDERED: DEXAMETHASONE 4 MG/ML VIAL ONE (13:31)
[2018-07-15] MEDS ORDERED: PHENYLEPHRINE HCL 100 MCG/ML SYR ONE (13:31)
[2018-07-15] MEDS ORDERED: ONDANSETRON 4 MG/2 ML VIAL ONE (13:32)
[2018-07-15] MEDS ORDERED: fentaNYL 100 MCG/2 ML INJ ONE (13:58)
[2018-07-15] MEDS ORDERED: GLYCOPYRROLATE 0.2 MG/1 ML VIAL ONE ×2 (14:21→14:27)
[2018-07-15] MEDS ORDERED: DESFLURANE 240 ML BOTTLE IH ONE (14:23)
[2018-07-15] MEDS ORDERED: NAPROXEN SODIUM 220 MG TAB PO PRN (14:42)
[2018-07-15] MEDS ORDERED: ALBUTEROL 60 PUFFS/8 GM MDI IH PRN (14:42)
--- NOTE | 2018-07-15 14:53 | EPPROC ---
Electrophysiology Procedure Note: ELECTROPHYSIOLOGIC STUDY AND CATHETER MEDIATED ABLATION OF SLOW/FAST AV LISA REENTRY TACHYCARDIA PROCEDURES PERFORMED: 68510-04 EP evaluation with RA/RV/LA pace/record, with arrhythmia induction 85155-24 EP evaluation with RA/RV pace record, insert/reposition catheter, with arrhythmia induction 65112 Intracardiac catheter ablation, SVT arrhythmogenic focus 66618 3D mapping Fluoroscopy INDICATION: SVT Planned mitral valve surgery PROCEDURE: Catheters & Anesthesia: The patient arrived in the Electrophysiology Laboratory in the fasting state. The right clavicular region, right groin, and left groin area were prepped and draped in the usual sterile manner. Anesthesiologist Dr. Ventura administered general anesthesia. Appropriate non-invasive blood pressure, pulse oximetry and end-tidal CO2 monitoring was established. All catheters were placed percutaneously using the modified Seldinger technique , and advanced into position under fluoroscopic guidance. One #6 Bhutanese hexapolar non-deflectable electrode catheter was inserted into the right atrial appendage via the left femoral vein (2mm spacing; except the proximal ring which was 25cm from the tip used for unipolar recordings). One #7 Bhutanese deflectable octapolar electrode catheter was advanced to the His-bundle position via the left femoral vein (2mm spacing). One #7 Bhutanese deflectable quadrapolar catheter was advanced to the anteroseptal right ventricle via the right femoral vein. One #7 Bhutanese deflectable catheter with 10 pairs of electrodes was placed via the right femoral vein into the coronary sinus. Heparin was given to keep ACT > 200 s. Programmed stimulation was performed from the right atrium, right ventricle and coronary sinus (left atrium). Parahisian pacing demonstrated constant H-A interval with changing V-A intervals and stimulus-A intervals during capture and loss of capture of proximal RBB proving retrograde conduction over AV node. AVNRT was induced easily during infusion of isoproterenol 4 mcg/min. Ventricular extrastimuli delivered during tachycardia without altering antegrade His bundle activation did not advance next atrial potential, indicating that the tachycardia was not utilizing an accessory pathway for retrograde conduction. VA interval was 0 ms. Post entrainment of the tachycardia from the ventricle, there was VAHV response. Mapping of the right atrium and coronary sinus during AVNRT identified earliest atrial activation above the tendon of Clover at a level slightly posterior to the level of the His bundle, consistent with retrograde conduction over the fast AV lisa pathway. A #8 Bhutanese deflectable quadrapolar electrode catheter (2mm-5mm-2mm spacing) with 4 mm tip electrode and sensor for the 3D mapping Carto system was advanced to the right atrium. 3 D mapping of the inter-atrial septum and coronary sinus was performed and location of the AV node was marked. A Mobi sheath was used. RF applications were delivered to the region between the tricuspid annulus and the coronary sinus ostium, at the level of the upper edge of the coronary sinus ostium. Radiofrequency applications were also delivered along the roof of the proximal coronary sinus. Junctional rhythm occurred during all of the RF applications. Programmed stimulation was continued post ablation at baseline and during graded doses of isoproterenol upto 4mcg/min and glycopyrolate. Sustained AVNRT was not inducible. There were no echo beats. The catheters were removed. Sheaths were removed in the EP lab after applying subcutaneous purse string suture. The patient was transferred to the cardiovascular holding area in stable condition. There were no apparent complications. Results: A. Spontaneous Intervals: Pre ablation SCL 660 ms AH 95 ms HV 45 ms Post ablation SCL 610 ms AH 70 ms HV 45 ms B. Antegrade AV lisa function (decremental pacing) Pre ablation FPERP 400 ms WBB CL 390 ms Post ablation FPERP 360 ms WBB CL 350 ms C. Retrograde AV lisa function (decremental pacing) Pre ablation FPERP 520 ms WBB CL 510 ms D. Arrhythmias: Sustained slow/fast AVNRT Cycle length 360 ms, AH interval 310 ms, MACDONALD interval 50 ms VA interval 40 ms CONCLUSIONS 1. 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 ( Slow/fast AVNRT). 2. Successful ablation of the slow AV lisa pathway with elimination of 1:1 antegrade conduction over the slow AV lisa pathway, all retrograde conduction over the slow AV lisa pathway and the inducibility of AVNRT. 3. No complications. Patient Problems: Problems Problem Status Onset Exacerbation of asthma Acute Mitral regurgitation Acute Supraventricular tachycardia Acute
--- NOTE | 2018-07-15 15:20 | POSTANESTH ---
Post Anesthetic Evaluation Cardiovascular Status: Normal, Stable Respiratory Status: Normal, Stable Level of Consciousness/Mental Status: Can Participate in Eval, Alert and Oriented Pain Control: Adequate, Prn Tx Ordered Nausea/Vomiting Control: Adequate, Prn Tx Ordered Complications Possibly Related to Anesthesia: Other, See Comments Notes: Patient states that the tooth that was loose on emergence was her cap that she glues in place. States it falls off easily.
--- NOTE | 2018-07-15 15:58 | CPEKG ---
Test Reason : OPEN Blood Pressure : / mmHG Vent. Rate : 074 BPM Atrial Rate : 074 BPM P-R Int : 144 ms QRS Dur : 093 ms QT Int : 389 ms P-R-T Axes : 056 045 053 degrees QTc Int : 432 ms Sinus rhythm Minimal ST depression, anterolateral leads Confirmed by Tonny Carroll ([id number]) on 07/15/2018 3:58:01 PM Referred By: Phan Austin Confirmed By:Tonny Carroll
[2018-07-15] MEDS ORDERED: HYDROCODONE/APAP 5/325 TAB PO ONE (17:45)
[2018-07-15] MEDS ORDERED: traZODone 50 MG TAB PO SCH (21:00)
[2018-07-16 04:50] LABS: PLATELET COUNT 207 10^3/uL (150-400)
[2018-07-16] MEDS ORDERED: DULoxetine 60 MG CAP PO SCH (09:00)
[2018-07-16] MEDS ORDERED: TOPIRAMATE 100 MG TAB PO SCH (09:00)
[2018-07-16] MEDS ORDERED: ASPIRIN 81 MG CHEWABLE TAB PO SCH (09:00)
[2018-07-16] MEDS ORDERED: Meloxicam [Meloxicam] 15 MG PO SCH (09:00)
[2018-07-16 11:23] VITALS: BP 129/75
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
--- NOTE | 2018-07-16 11:58 | ECHO ---
[email or web address] [address] [address] Main: [phone] Fax: Transthoracic Echocardiogram Name: JC RUSSO MR#: [id number] Study Date: 07/16/2018 Study Time: 07:47 AM Date of : 1950 Age: 68 year(s) Height: 160 cm (63 in.) Weight: 48.99 kg (108 lb.) BSA: 1.49 m2 Gender: Female Examination: Echo Indication: F/U post EP study Image Quality: Good Contrast: Requested by: Phan Austin BP: 117 mmHg/55 mmHg Heart Rate: Rhythm: Indication: F/U post EP study Procedure Staff Center Machine Set Up Operator: Taniya Navarro RDCS Reading Physician: Phan Austin MD Requesting Provider: Conclusions: Mild concentric LV hypertrophy. Normal global systolic LV function. Diastolic dysfunction is indeterminate.. The left atirum is borderline dilated. Severe prolapse of the posterior mitral leaflet and a flail chordae of the anterior mitral leaflet. There is moderate to severe mitral regurgitation.. At least 3 jets of moderate to severe tricuspid regurgitation. RVSP is 37mmHG.. Measurements: Chambers Valvular Assessment AV/MV Valvular Assessment TV/PV Normal Normal Normal Name Value Range Name Value Range Name Value Range Ao Tess (MM): 3.4 cm (2.2 cm-3.7 AV Vmax: 0.98 m/s (1 m/s-1.7 TR Vmax: 2.82 mm/s ( - ) cm) m/s) TR PGmax: 32 mmHg ( - ) IVSd (2D): 0.9 cm (0.6 cm-1.1 AV meanP mmHg ( - ) syst. PAP: 37 mmHg ( - ) cm) DAVID (VTI): 2.5 cm ( - ) LVDd (2D): 4.8 cm (3.9 cm-5.3 MV E Vmax: 0.87 m/s ( - ) cm) MV A Vmax: 0.78 m/s ( - ) LVDs (2D): 2.9 cm (2.1 cm-4 MV E/A: 1.12 ( - ) cm) LVPWd (2D): 1.0 cm ( - ) LVOTd 2.1 cm 2.1 cm mm LVEF (BP): 65 % (>=55 %) EF Range: 60-65 % Continued Measurements: Chambers Valvular Assessment AV/MV Valvular Assessment TV/PV Name Value Name Value Name Value LADs: 3.2 cm MV E' Septal: 0.07 m/s CVP (est.): 5 mmHg Patient: JC RUSSO Study Date: 07/16/2018 Page 1 of 2 07:47 AM LADs Lon.4 cm MV E/E' Septal: 12.40 LA Area: 15.2 cm2 MV E/E' Lateral: 15.60 LA Volume: 42 ml MR Vena Contracta: 0.3 cm LA Volume Index: 28.2 ml/m2 Findings: Left Ventricle: Normal size left ventricle. Mild concentric LV hypertrophy. Normal global systolic LV function. The ejection fraction is estimated to be 60-65 %. No regional wall motion abnormality. Diastolic dysfunction is indeterminate.. Right Ventricle: Normal size right ventricle. Left Atrium: The left atirum is borderline dilated. Right Atrium: The right atrium is normal in size. Mitral Valve: Severe prolapse of the posterior mitral leaflet and a flail chordae of the anterior mitral leaflet. There is moderate to severe mitral regurgitation.. Aortic Valve: The aortic valve is normal in appearance and function. The aortic valve is tri-leaflet. Tricuspid Valve: The pulmonary artery pressure is normal. At least 3 jets of moderate to severe tricuspid regurgitation. RVSP is 37mmHG.. Pulmonic Valve: Pulmonary valve not well visualized. Aorta: The aorta is normal. Pericardium: No pericardial effusion. There is pericardial fat. (No Signature Object) Patient: JC RUSSO Study Date: 07/16/2018 Page 2 of 2 07:47 AM D:_[id number]
--- NOTE | 2018-07-16 16:11 | CPEKG ---
Test Reason : F/U Post EP Study Blood Pressure : / mmHG Vent. Rate : 121 BPM Atrial Rate : 122 BPM P-R Int : 118 ms QRS Dur : 077 ms QT Int : 317 ms P-R-T Axes : 000 050 043 degrees QTc Int : 450 ms Sinus tachycardia Borderline ST depression, anterolateral leads Confirmed by Tonny Carroll ([id number]) on 07/16/2018 4:11:19 PM Referred By: Phan Austin Confirmed By:Tonny Carroll
--- NOTE | 2018-07-16 16:41 | CPEKG ---
Test Reason : OPEN Blood Pressure : / mmHG Vent. Rate : 070 BPM Atrial Rate : 071 BPM P-R Int : 160 ms QRS Dur : 094 ms QT Int : 387 ms P-R-T Axes : 051 043 058 degrees QTc Int : 418 ms Sinus rhythm Confirmed by Tonny Carroll ([id number]) on 07/16/2018 4:40:49 PM Referred By: Phan Austin Confirmed By:Tonny Carroll
--- NOTE | 2018-07-16 23:02 | GDS ---
[f rep st] DISCHARGE SUMMARY [employer]PERVISING [employer]ETING DIRECTOR: Phan Austin MD ADMISSION DIAGNOSES: 1. Mitral regurgitation. 2. Supraventricular tachycardia. DISCHARGE DIAGNOSES: 1. Mitral regurgitation. 2. AV niki reentrant tachycardia, status post successful ablation. PROCEDURES PERFORMED DURING HOSPITALIZATION: 1. Electrocardiogram. 2. Echocardiogram. 3. Electrophysiology study 4. AV niki reentrant tachycardia ablation HOSPITAL COURSE: The patient presented on July 15, 2018 for SVT ablation in the setting of increasing frequency of symptomatic episodes of supraventricular tachycardia prior to her upcoming mitral valve repair. She underwent successful ablation of AV niki reentrant tachycardia with Dr. Phan Austin without intraprocedural complications. She has done very well overnight without issues and has been up ambulating around her room without issue this morning. She is appropriate and stable for discharge home today. PHYSICAL EXAMINATION: GENERAL: She is alert and oriented x4. No apparent distress. VITAL SIGNS: Blood pressure 117/55, heart rate 83, respiratory rate 19, SpO2 97% on room air, temp 36.7. RESPIRATORY: Lungs are clear to auscultation without adventitious breath sounds. CARDIAC: Normal S1, S2. No S3 or S4. Presence of systolic murmur. Rhythm is regular. ABDOMEN: Normoactive bowel sounds times all 4 quadrants, no masses or tenderness. ABDOMEN: Soft. Skin pink, warm, dry without cyanosis, clubbing, or peripheral edema. EXTREMITIES: Bilateral purse string sutures are removed intact without evidence of hematoma, redness, oozing, swelling, or warmth. Pulses are 2+ bilaterally, no edema. LABORATORY STUDIES: Drawn today: BMP and CBC are stable compared to preprocedure. Troponin is 0.532, slight elevation is expected in the postprocedure setting. PROCEDURES: Electrophysiology study and AVNRT ablation as mentioned above. Preliminary echocardiogram done this morning demonstrates normal left ventricular systolic function without new wall motion abnormalities or pericardial effusion. Echocardiogram did demonstrate new moderate to severe tricuspid regurgitation. Dr. Gibson has been apprised of this change in preparation for her upcoming valvular repair. Electrocardiogram this morning demonstrates normal sinus rhythm without new ST-T wave or IN interval abnormalities. DISCHARGE DISPOSITION: The patient will be discharged home in stable condition. She is under activity restrictions as below. DISCHARGE MEDICATIONS: Please see discharge medication reconciliation sheet for full details. Please note, there were no medication changes made during the hospitalization. DISCHARGE INSTRUCTIONS: Post SVT ablation instructions reviewed with patient in detail. We discussed activity restrictions including lifting more than 10 pounds and avoidance of submerged bathing for 10 days. She will get up and walk around every 45 minutes for 45 days. We also reviewed bleeding precautions, medication compliance, monitoring for signs and symptoms of infection, and monitoring for sustained arrhythmias. At the time of discharge, the patient verbalized understanding of all discharge instructions without questions or concerns. She has a followup visit scheduled in 2-3 weeks and will contact the clinic with any new or concerning symptoms prior to the upcoming visit. Time spent on discharge: Greater than 30 minutes. /[id number]/MODL MTDD
== END 2018-07-16 12:55 | disposition home or self-care (01) ==
LOC: FCATH 09:06 → F2W 14:44
PROVIDERS: ADMIT Internal Medicine Cardiovascular Disease; ATTEND Internal Medicine Cardiovascular Disease
DX: I47.1 Supraventricular tachycardia (principal); I34.0 Nonrheumatic mitral (valve) insufficiency; Z23 Encounter for immunization
CPT/HCPCS: 90471; 93005; 93306; 93613; 93621; 93623; 93653; 97165; C1730; C1732; G0378; C1731; C1766; G0008; J1100; J1644; J2250; J2370; J2405; J2704; J3010; Q9967

== ENCOUNTER → 2018-08-02 | Outpatient (CLI) | payer OTHER | LOC: FIMAGING 14:30 | PROVIDERS: ATTEND Thoracic Surgery (Cardiothoracic Vascular Surgery) | DX: I34.0 Nonrheumatic mitral (valve) insufficiency (principal); I47.1 Supraventricular tachycardia ==

== ENCOUNTER 2018-08-05 07:23 | Inpatient (IN) | payer OTHER ==
[2018-08-05] MEDS ORDERED: ceFAZolin 2 GM/DEXTROSE 100 ML IV ONE (07:37)
[2018-08-05] MEDS ORDERED: MUPIROCIN 2% 22 GM OINT NS ONE (07:37)
[2018-08-05] MEDS ORDERED: CITRATE DEXTROSE SOLN 500 ML BAG MISC ONE (07:37)
[2018-08-05] MEDS ORDERED: AMINOCAPROIC ACID 5 GM/20 ML VIAL IV ONE (07:37)
[2018-08-05] MEDS ORDERED: LIDOCAINE 1% 2 ML INJ ID PRN (07:37)
[2018-08-05] MEDS ORDERED: LR 1,000 ML IV ONE (07:38)
[2018-08-05] MEDS ORDERED: CEFAZOLIN 2 GM/DEXTROSE/100 ML BAG IV ONE (07:45)
[2018-08-05] MEDS ORDERED: PROTAMINE SULFATE 50 MG/5 ML VIAL IVP ONE (07:59)
[2018-08-05] MEDS ORDERED: AMINOCAPROIC ACID 5 GM/20 ML VIAL ONE ×2 (08:00→08:04)
[2018-08-05] MEDS ORDERED: MILRINONE/DEXTROSE/100 ML BAG IV ONE (08:00)
[2018-08-05] MEDS ORDERED: NA BICARBONATE 50 MEQ/50 ML VIAL ONE (08:00)
[2018-08-05] MEDS ORDERED: CALCIUM CHLORIDE 1 GM/10 ML INJ ONE ×2 (08:00→08:04)
[2018-08-05] MEDS ORDERED: DOPamine/DEXTROSE 400 MG/250 ML BAG IV ONE (08:01)
[2018-08-05] MEDS ORDERED: HEPARIN 10,000 UNIT/10 ML MDV (1,000 UNIT/ML) ONE ×2 (08:01→08:04)
[2018-08-05] MEDS ORDERED: NITROGLYCERIN/D5W 50 MG/250 ML BOTTLE IV ONE (08:02)
[2018-08-05] MEDS ORDERED: AMIODARONE HCL 150 MG/3 ML VIAL ONE ×2 (08:02→08:05)
[2018-08-05] MEDS ORDERED: niCARdipine/NACL/200 ML BAG IV ONE (08:02)
[2018-08-05] MEDS ORDERED: ceFAZolin 1 GM VIAL ONE (08:02)
[2018-08-05] MEDS ORDERED: ADENOSINE 6 MG/2 ML VIAL ONE (08:02)
[2018-08-05] MEDS ORDERED: SODIUM BICARBONATE 50 MEQ/50 ML SYR ONE (08:03)
[2018-08-05] MEDS ORDERED: ALBUMIN 5% 250 ML BOTTLE IV ONE (08:03)
[2018-08-05] MEDS ORDERED: LIDOCAINE 2% 100 MG/5 ML SYR ONE (08:04)
[2018-08-05] MEDS ORDERED: methylPREDNISolone SOD SUCC 1 GM/8 ML VIAL ONE (08:05)
[2018-08-05] MEDS ORDERED: CITRATE DEXTROSE SOLN 500 ML BAG ONE (08:05)
[2018-08-05] MEDS ORDERED: MAGNESIUM SULFATE 1 GM/2 ML VIAL ONE (08:05)
[2018-08-05] MEDS ORDERED: DOBUTamine/DEXTROSE 250 ML IV ONE (09:00)
[2018-08-05] MEDS ORDERED: CARDIOPLEGIC SOLUTION 1,052.8 ML PF ONE (09:00)
[2018-08-05] MEDS ORDERED: INSULIN REGULAR HUMAN 100 UNIT in NS 100 ML IV ONE (09:00)
[2018-08-05] MEDS ORDERED: MANNITOL 25% 12.5 GM/50 ML VIAL IVP ONE (09:00)
[2018-08-05] MEDS ORDERED: PHENYLEPHRINE HCL 50 MG in NS 250 ML IV ONE (09:00)
[2018-08-05] MEDS ORDERED: ALBUTEROL 60 PUFFS/8 GM MDI IH PRN (09:09)
--- NOTE | 2018-08-05 09:27 | PDGENHP ---
History and Physical - Chief Complaint elective MVRepair - History of Present Illness This is a pleasant 68F who presents for elective mitral valve repair. She has a history of SVT/AVNRT s/p successful ablation on 07/15/[address] Austin. As noted extensively in her EHR, she has had increasing symptoms of SOB and lightheadedness. This prompted her to visit the ED on 06/30/18 for SVT. At that time, she, initially responded to adenosine, but flipped back into SVT and was subsequently treated with Cardizem until her outpatient procedure. Workup including MANDIE demonstrates severe mitral valve regurgitation with a flail posterior MV leaflet. LHC without CAD and RHC with essentially normal PA pressures. Since her discharge, she has been doing well. She has some right groin tenderness with a "knot" from the procedure. She also developed a bad cold sore post-procedure with lip edema and was placed on acyclovir with relief. No SOB, chest pain, palpitations, LE edema, or infection. History Information - Allergies/Home Medication List Allergies/Adverse Reactions: No Known Allergies Allergy (Verified 06/30/18 12:56) Home Medications: Albuterol [Proventil Inhaler HFA (*)] 2 puffs IH Q4 PRN 03/17/13 [Last Taken 1 Week Ago ~07/29/18] DULoxetine [Cymbalta 60 MG (*)] 60 mg PO DAILY 03/17/13 [Last Taken 08/04/18] Meloxicam 15 mg PO DAILY 06/30/18 [Last Taken 08/04/18] Topiramate [Topamax 100MG (*)] 100 mg PO DAILY 06/30/18 [Last Taken 08/04/18] traZODone [traZODONE 50MG (*)] 25 - 50 mg PO HS 06/30/18 [Last Taken 08/04/18] Naproxen Sodium [Aleve 220 MG (*)] 220 mg PO DAILY PRN 07/04/18 [Last Taken ] Acyclovir [Zovirax 400 mg (*)] 400 mg PO TID 08/05/18 [Last Taken 08/04/18] I have personally reviewed and updated: family history, medical history, social history, surgical history - Social History Smoking Status: Never smoked Review of Systems Review of Systems: ROS: 2-9 pt reviewed & negative except for what was stated in HPI & below Physical Exam Physical Exam: Temp Pulse Resp BP Pulse Ox 34.7 C L 76 18 177/84 H 97 08/05/18 08:34 08/05/18 08:34 08/05/18 08:34 08/05/18 08:34 08/05/18 08:34 Constitutional: no apparent distress, appears nourished, not in pain Eyes: PERRL, icteric sclera Ears, Nose, Mouth, Throat: moist mucous membranes, hearing normal, ears appear normal, other (cold sore left lower lip, minimal edema) Cardiovascular: regular rate and rhythym, systolic murmur Respiratory: no respiratory distress, no rales or rhonchi, clear to auscultation Gastrointestinal: normoactive bowel sounds, soft, non-tender abdomen Neurologic: AAOx3 Psychiatric: interacting appropriately, not anxious Lab Data & Imaging Review 08/05/18 07:37 Patient ABO/Rh A POSITIVE 08/02/18 14:54 Antibody Screen NEGATIVE 08/02/18 14:54 Imaging Review: 07/16/18 TTE Severe prolapse of the posterior MV leaflet with moderate-severe regurgitation Flail chordae of the anterior mitral leaflet Moderate-severe tricuspid regurgitation Mild concentric LVH Normal global systolic LV function LA dilation 07/16 EKG NSR 70 BPM QTc 418 08/02/18 CXR WNL 07/15/18 EP AVNRT s/p successful ablation 07/10/18 LHC/RHC LVEF 60-65% No CAD Normal pulmonary artery pressures Assessment & Plan Assessment: Assessment: Moderate to severe mitral valve regurgitation Moderate to severe tricuspid valve regurgitation AVNRT s/p successful ablation with Dr. Austin 07/15/18 Normal PA pressures Normal LVEF Exercise-induced asthma Plan: Plan: Fernando MTZ MICS MVR/R with Dr. Jones. Tissue if replaced.
[2018-08-05] MEDS ORDERED: MIDAZOLAM 2 MG/2 ML VIAL IVP ONE (10:37)
--- NOTE | 2018-08-05 10:37 | PDANEPAE ---
ANE History of Present Illness 68 yo for mvr ANE Past Medical History - Cardiovascular History Hx Hypertension: No Hx Arrhythmias: Yes Hx Chest Pain: No Hx Coronary Artery / Peripheral Vascular Disease: No Hx CHF / Valvular Disease: Yes Hx Palpitations: Yes Cardiovascular History Comment: Symptomatic SVT. mitral valve prolaps. ruptured chordae tendineas. 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 inner ear issues - Chronic Pain History Chronic Pain: No - Surgical History Prior Surgeries: 07/15/18 EP study with SVT ablation with Norman. 07/01/18 MANDIE with [facility]. 03/17/13 right wrist ORIF with [facility] ANE Review of Systems Review of Systems: - Exercise capacity METS (RN): 3 METS ANE Patient History - Allergies Allergies/Adverse Reactions: No Known Allergies Allergy (Verified 06/30/18 12:56) - Home Medications Home Medications: Albuterol [Proventil Inhaler HFA (*)] 2 puffs IH Q4 PRN 03/17/13 [Last Taken 1 Week Ago ~07/29/18] DULoxetine [Cymbalta 60 MG (*)] 60 mg PO DAILY 03/17/13 [Last Taken 08/04/18] Meloxicam 15 mg PO DAILY 06/30/18 [Last Taken 08/04/18] Topiramate [Topamax 100MG (*)] 100 mg PO DAILY 06/30/18 [Last Taken 08/04/18] traZODone [traZODONE 50MG (*)] 25 - 50 mg PO HS 06/30/18 [Last Taken 08/04/18] Naproxen Sodium [Aleve 220 MG (*)] 220 mg PO DAILY PRN 07/04/18 [Last Taken ] Acyclovir [Zovirax 400 mg (*)] 400 mg PO TID 08/05/18 [Last Taken 08/04/18] - NPO status NPO Since - Liquids (Date): 08/04/18 NPO Since - Liquids (Time): 21:15 NPO Since - Solids (Date): 08/04/18 NPO Since - Solids (Time): 21:15 - Anes Hx Anes Hx: no prior problems - Smoking Hx Smoking Status: Never smoked ANE Labs/Vital Signs - Labs Result Diagrams: 08/05/18 07:37 - Vital Signs Blood Pressure: 177/84 Heart Rate: 76 Respiratory Rate: 18 O2 Sat (%): 97 Height: 5 ft 3 in Weight: 48.988 kg ANE Physical Exam - Airway Neck exam: FROM Mallampati Score: Class 2 Mouth exam: dentures - Pulmonary Pulmonary: no respiratory distress - Cardiovascular Cardiovascular: regular rate and rhythym - ASA Status ASA Status: III ANE Anesthesia Plan Anesthesia Plan: general endotracheal anesthesia Lines/Monitors: arterial line, central line, MANDIE Specialized Airway: double lumen tube
[2018-08-05] MEDS ORDERED: MIDAZOLAM 2 MG/2 ML VIAL ONE (10:40)
[2018-08-05] MEDS ORDERED: REMIFENTANIL HCL 1 MG VIAL ONE (10:41)
[2018-08-05] MEDS ORDERED: PROPOFOL/EMULSION 500 MG/50 ML BOTTLE IV ONE (10:41)
[2018-08-05] MEDS ORDERED: fentaNYL 250 MCG/5 ML INJ ONE (10:41)
[2018-08-05] MEDS ORDERED: ROCURONIUM 100 MG/10 ML VIAL ONE (10:43)
[2018-08-05] MEDS ORDERED: DEXAMETHASONE 4 MG/ML VIAL ONE (10:43)
[2018-08-05] MEDS ORDERED: DEXMEDETOMIDINE HCL 400 MCG in NS 100 ML IV SCH (11:00)
[2018-08-05] MEDS ORDERED: ROCURONIUM 50 MG/5 ML VIAL ONE (13:16)
[2018-08-05] MEDS ORDERED: PROPOFOL 200 MG/20 ML VIAL ONE (15:03)
--- NOTE | 2018-08-05 15:34 | POSTOPPROG ---
Post Op Note Date of Operation: 08/05/18 Surgeon: Amadeo Gibson Assistant: Barron Nielson PAC Anesthesia: GET(General Endotracheal) Pre-op Diagnosis: mitral valve regurgitation Post-op Diagnosis: same Procedure: robotic assisted mitral valve repair (p2 resection & plasty, 28 mm ring) Findings: torn chordae at p2 Inf/Abcess present in the surg proc area at time of surgery?: No Depth: Organ Space EBL: 100-500 Complications: none Drains: Other (chest tube to pleurvac -20 suction; no wires) Specimen(s): p2 of the mitral valve
[2018-08-05] MEDS ORDERED: SODIUM CL NASAL 45 ML BTL EACHNARE PRN (15:40)
[2018-08-05] MEDS ORDERED: fentaNYL 100 MCG/2 ML INJ IVP PRN (15:40)
[2018-08-05] MEDS ORDERED: ONDANSETRON DISINTEGRATING 4 MG TAB PO PRN (15:40)
[2018-08-05] MEDS ORDERED: POLYETHYLENE GLYCOL 3350 17 GM PKT PO PRN (15:40)
[2018-08-05] MEDS ORDERED: METOCLOPRAMIDE 10 MG/2 ML VIAL IVP PRN (15:40)
[2018-08-05] MEDS ORDERED: PANTOPRAZOLE SODIUM 40 MG VIAL IVP ONE (15:40)
[2018-08-05] MEDS ORDERED: ONDANSETRON 4 MG/2 ML VIAL IVP PRN (15:40)
[2018-08-05] MEDS ORDERED: LACTULOSE 20 GM/30 ML UDCUP PO PRN (15:40)
[2018-08-05] MEDS ORDERED: CEPACOL LOZENGE PO PRN (15:40)
[2018-08-05] MEDS ORDERED: ACETAMINOPHEN 650 MG SUPP PR PRN (15:40)
[2018-08-05] MEDS ORDERED: MAGNESIUM HYDROXIDE 30 ML UDCUP PO PRN (15:40)
[2018-08-05] MEDS ORDERED: MEPERIDINE 25 MG/0.5 ML AMP IVP PRN (15:40)
[2018-08-05] MEDS ORDERED: ACETAMINOPHEN 325 MG TAB PO PRN (15:40)
[2018-08-05] MEDS ORDERED: D50W 25 GM/50 ML SYR IVP PRN (15:40)
[2018-08-05] MEDS ORDERED: BISACODYL 10 MG SUPP PR PRN (15:40)
[2018-08-05] MEDS ORDERED: NS 1,000 ML IV SCH (15:45)
[2018-08-05] MEDS ORDERED: niCARdipine/NACL 200 ML IV SCH (16:00)
[2018-08-05] MEDS ORDERED: INSULIN REGULAR HUMAN 100 UNIT in NS 100 ML IV SCH (16:00)
--- NOTE | 2018-08-05 16:08 | PDMN ---
Medical Necessity Medical necessity: Pt meets inpt criteria per MD order and [facility] S-290, Cardiac Valve Replacement or Repair, 5 days, IP only list. 68 y/o w/recurrent SVT ( recent ablation) and severe mitral valve regurg, admitted for robotic assisted mitral valve repair w/posterior leaflet resection & annuloplasty, and post-op care.
[2018-08-05] MEDS: POTASSIUM Cl (KCl) 50 ML IV PRN ×2 (16:30→17:20)
--- NOTE | 2018-08-05 16:36 | GOP ---
[f rep st] OPERATIVE REPORT DATE OF OPERATION: 08/05/2018 SURGEON: Amadeo Gibson MD MEAT CURER: Barron Nielson P.A.-c PREOPERATIVE DIAGNOSIS: Severe mitral regurgitation with a torn chord to the P2 portion of the poste rior leaflet. POSTOPERATIVE DIAGNOSIS: Severe mitral regurgitation with a torn chord to the P2 portion of the post erior leaflet. PROCEDURE PERFORMED: Robotic-assisted mitral valve repair with resection of the P2 portion of the po sterior leaflet, reconstruction and annuloplasty with a 28 mm Physio ring. FINDINGS: There was a single large cord to the P2 portion of the posterior leaflet which was torn. The remainder of the valve was well supported in both the anterior leaflet and the P1 and P3 segment. Post-pump transesophageal echo shows no residual mitral regurgitation. INDICATIONS: The patient is a 68-year-old woman found to have severe mitral regurgitation. She has normal coronaries. She has normal ventricular function. She was recommended to undergo surgical stu ve repair for both symptomatic and prognostic benefit. DESCRIPTION OF PROCEDURE: Patient was taken to the operating room and placed on the operating table in the supine position. After induction of general anesthesia and double-lumen endotracheal tube int ubation, the patient was prepped and draped sterilely. We began by creating the utility port in appr oximately the 3rd interspace laterally. Once this was in place, we then put 3 ports in for the robot ic arms: Left, right, and the left atrial retractor arm. At this point, we then accessed the right subclavian vein and cutdown on the common femoral artery and vein. The patient was then fully hepari nized. We placed a 15-Tuvaluan Bio-Medicus in the superior vena cava. A long venous cannula was place d through the right common femoral vein into the right atrium. We sewed cannula graft end-to-side to the common femoral artery using running 4-0 Prolene. Having completed this, the robotic system was brought up onto the field and docked. Cardiopulmonary bypass was instituted. We opened the pericard ium and placed a cardioplegia needle in the ascending aorta. Next, a transthoracic cross-clamp was p laced. The cross-clamp was applied and the heart was arrested with 1 L of [place] solution. Left a trium was opened and the findings are described above. We resected the P2 portion of the posterior l eaflet and then reconstructed this leaflet with a 4-0 Pronova suture. We sized this to a 28 mm Physi o ring. Sutures were placed around the annulus and the valve ring was seated without difficulty. It was secured in place with Cor-Knot devices. Having completed this, left atrium was closed and the c ross-clamp was removed. A 28-Tuvaluan chest tube was placed. The left lung was ventilated and the pat ient was from bypass. The post-pump transesophageal echo shows a normally-functioning mitr al valve with no residual mitral regurgitation. The protamine was then administered. The right lung was ventilated. The ribs were reapproximated with #1 pericostal sutures. The vein was repaired dir ectly with a 5-0 Prolene, and the artery was also repaired directly with over-sewing a micro-cuff of the cannula graft with a running 4-0 Prolene. The wounds were then closed in layers with Vicryl sutu re. The patient was then returned to the ICU in stable condition. /[id number]/MODL
[2018-08-05] MEDS: ALBUMIN 5% 250 ML IV PRN ×2 (16:55→18:27)
[2018-08-05] MEDS ORDERED: FAMOTIDINE 20 MG/NACL 50 ML IV SCH (21:00)
[2018-08-05] MEDS ORDERED: CHLORHEXIDINE GLUCONATE 15 ML UDL PO SCH (21:00)
[2018-08-05] MEDS: ceFAZolin 2 GM/DEXTROSE 100 ML IV SCH (21:40)
[2018-08-05] MEDS: HYDROCODONE/APAP 5/325 TAB PO PRN (21:40)
[2018-08-05] MEDS: MUPIROCIN 2% 22 GM OINT NS SCH (23:32)
[2018-08-06] MEDS: HYDROCODONE/APAP 5/325 TAB PO PRN ×4 (03:09→15:40)
[2018-08-06] MEDS: ceFAZolin 2 GM/DEXTROSE 100 ML IV SCH ×3 (05:53→21:45)
[2018-08-06 06:04] LABS: PLATELET COUNT 134 10^3/uL (150-400)
--- NOTE | 2018-08-06 07:24 | SOAPPROG ---
SOAP Progress Note Assessment/Plan: Assessment: POD#1 Robotic assisted mitral valve repair, P2 rsxn with #28 Physio ring annuloplasty Sx severe MR - Amenable to MICS repair. Extubated without incident. Hemodynamically stable early postop course. No vasoactive support. No tachyarrhythmias. Min volume overload. Antithrombotic prophylaxis with coumadin x 2 months, target INR 2-3. AF prophylaxis with BB, as tolerated. Moderate TR - Expected to improve w competent MV. Surveillance per cards. Vestibular schwannoma - Assoc w occ loss of balance. May need assist device for ambulation. Await PT input. 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 Sx relief w Acyclovir. Patient to direct frequency and duration of antiviral. Plan: Routine POD#1 orders re lines, drains, orals and mobility. Tx to PCU. 08/06/18 07:20 Subjective: Comfortable. Slept well. No difficulty getting OOB. No nausea. No acute concerns. Objective: Vital Signs Temp Pulse Resp BP Pulse Ox 37.1 C 87 12 105/62 97 08/06/18 04:00 08/06/18 05:59 08/06/18 05:59 08/06/18 05:59 08/06/18 05:59 Laboratory Results 08/06/18 05:50 08/06/18 05:50 08/05/18 08/06/18 08/07/18 05:59 05:59 05:59 Intake Total 1131 Output Total 1565 Balance -434 Holding SR. MAPs > 70. PADs 8-10, CI > 3, SVO2 > 70. Borderline suppl O2 req. Adequate UOP and fluid balance. + 2 kg by wt. CXR excellent insp effort, no PTX, no pulm vasc congestion, no undrained effusion, min atelectasis. CTOP nearing removal criteria. Labs as expected. Physical Exam - Physical Exam General Appearance: alert, no apparent distress Respiratory: lungs clear (grossly), other (rt mini thoracot dressing CDI, CT to pleurovac, serosang drainage, no inducible air leak) Cardiac/Chest: regular rate, rhythm (no murmur appreciated) Abdomen: normal bowel sounds, non-tender, soft Skin: normal color, warm/dry Extremities: swelling (trace), other (rt groin CDI, surrounding area soft, NT; rt foot pink and warm, 2+ PT pulse) ICD10 Worksheet Patient Problems: Problems Problem Status Onset Acute blood loss anemia Acute S/P MVR (mitral valve repair) Acute ~08/05/18 Tricuspid regurgitation Acute Mitral regurgitation Acute
--- NOTE | 2018-08-06 07:56 | CPEKG ---
Test Reason : OPEN Blood Pressure : / mmHG Vent. Rate : 086 BPM Atrial Rate : 086 BPM P-R Int : 179 ms QRS Dur : 093 ms QT Int : 446 ms P-R-T Axes : 078 067 063 degrees QTc Int : 534 ms Sinus rhythm Minimal ST depression, anterior leads Prolonged QT interval Confirmed by Mark Dillon ([id number]) on 08/06/2018 7:55:51 AM Referred By: Amadeo Gibson Confirmed By:Mark Dillon
[2018-08-06] MEDS ORDERED: NAPROXEN SODIUM 220 MG TAB PO PRN (08:06)
[2018-08-06] MEDS ORDERED: traMADol 50 MG TAB PO PRN (08:07)
[2018-08-06] MEDS: METOPROLOL TARTRATE 25 MG TAB PO SCH ×2 (09:58→21:46)
[2018-08-06] MEDS: ASPIRIN 81 MG CHEWABLE TAB PO SCH (10:00)
[2018-08-06] MEDS: ACYCLOVIR 400 MG TAB PO SCH ×3 (10:00→21:46)
[2018-08-06] MEDS: MUPIROCIN 2% 22 GM OINT NS SCH ×2 (10:01→21:47)
[2018-08-06] MEDS: DULoxetine 60 MG CAP PO SCH (10:01)
[2018-08-06] MEDS: TOPIRAMATE 100 MG TAB PO SCH (10:01)
[2018-08-06] MEDS ORDERED: CARDIOPLEGIC SOLUTION 1,052.8 ML PF ONE (11:00)
[2018-08-06] MEDS ORDERED: DOBUTamine/DEXTROSE 250 ML IV ONE (11:00)
[2018-08-06] MEDS ORDERED: PHENYLEPHRINE HCL 50 MG in NS 250 ML IV ONE (11:00)
[2018-08-06] MEDS ORDERED: MANNITOL 25% 12.5 GM/50 ML VIAL IVP ONE (11:00)
[2018-08-06] MEDS ORDERED: INSULIN REGULAR HUMAN 100 UNIT in NS 100 ML IV ONE (11:00)
--- NOTE | 2018-08-06 14:34 | ASMTCMCOM ---
CM Note CM Note Notes: Pt is a 68 yo F here for elective mitral valve repair. Pt has been cleared by PT/OT. Pt to follow up with Cardiac Rehab. Pt will likely be discharged independently. No CM needs identified. CM available if needs arise. Plan: Independent with follow-up as indicated. Date Signed: 08/06/2018 02:33 PM Electronically Signed By:DAYSI Akers
[2018-08-06] MEDS ORDERED: ASPIRIN 81 MG CHEWABLE TAB TUBE PRN (15:40)
[2018-08-06] MEDS: PANTOPRAZOLE SODIUM 40 MG TAB PO SCH (15:40)
[2018-08-06] MEDS ORDERED: ASPIRIN 81 MG CHEWABLE TAB PO SCH (15:40)
[2018-08-06] MEDS: traZODone 50 MG TAB PO SCH (21:45)
[2018-08-06] MEDS: SENNOSIDES/DOCUSATE SODIUM TAB PO SCH (21:46)
[2018-08-07 05:42] LABS: PLATELET COUNT 134 10^3/uL (150-400)
[2018-08-07] MEDS: ceFAZolin 2 GM/DEXTROSE 100 ML IV SCH (06:03)
[2018-08-07] MEDS: HYDROCODONE/APAP 5/325 TAB PO PRN ×2 (06:03→15:18)
--- NOTE | 2018-08-07 07:28 | SOAPPROG ---
SOAP Progress Note Assessment/Plan: Assessment: POD#2 Robotic assisted mitral valve repair, P2 rsxn with #28 Physio ring annuloplasty Sx severe MR - Amenable to MICS repair. Extubated without incident. Hemodynamically stable early postop course. Chest tube out yest. Antithrombotic prophylaxis with ASA alone as per Dr Gibson protocol. AF prophylaxis with BB compl by AVB and metoprolol stopped. Postoperative second degree AV block - Development of Wenckebach late last noc. HR intermittently into the 40s with relative hypotension. Started on low dose dopa with good effect and txd back to ICU status. BB stopped. Moderate TR - Expected to improve w competent MV. Surveillance per cards. Vestibular schwannoma - Assoc w hearing loss and occ loss of balance. No ambulatory aid needs identified by PT. 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 Sx relief w Acyclovir. Patient to direct frequency and duration of antiviral. Plan: Stop dopa and observe rhythm. Ok for tx to PCU. Add Mucinex. Dispo - Home without services tomorrow if rhythm stable. 08/07/18 07:27 Subjective: Doing ok. Light activity well tolerated. Coughing a bit more. Phlegm thick. Objective: Vital Signs Temp Pulse Resp BP Pulse Ox 37.3 C 65 8 L 127/51 H 95 08/07/18 04:00 08/07/18 06:00 08/07/18 06:00 08/07/18 06:00 08/07/18 06:00 Laboratory Results 08/07/18 05:21 08/07/18 05:21 08/06/18 08/07/18 08/08/18 05:59 05:59 05:59 Intake Total 1131 715 Output Total 1565 150 Balance -434 565 SR w 2nd degree AVB ~3am. No prolonged pauses. HR into the 70s and SBP into the 120s on low dose dopa. Off O2. Adequate fluid balance. Labs as expected. Physical Exam - Physical Exam General Appearance: alert, no apparent distress Respiratory: crackles (left base), other (mini thoracot and port sites ok; chest tube site a little oozy.) Cardiac/Chest: regular rate, rhythm Abdomen: non-tender, soft Skin: warm/dry Extremities: swelling (trace), other (rt groin CDI, foot pink and warm, 2+ PT pulse) ICD10 Worksheet Patient Problems: Problems Problem Status Onset Acute blood loss anemia Acute S/P MVR (mitral valve repair) Acute ~08/05/18 Tricuspid regurgitation Acute Mitral regurgitation Acute
[2018-08-07] MEDS ORDERED: POTASSIUM CL 10 MEQ TAB PO ONE (09:00)
[2018-08-07] MEDS ORDERED: FUROSEMIDE 20 MG/2 ML VIAL IVP ONE (09:00)
[2018-08-07] MEDS: SENNOSIDES/DOCUSATE SODIUM TAB PO SCH ×2 (09:14→22:36)
[2018-08-07] MEDS: ASPIRIN 325 MG TAB PO SCH (09:14)
[2018-08-07] MEDS: guaiFENesin 600 MG TAB.ER PO SCH (09:14)
[2018-08-07] MEDS: PANTOPRAZOLE SODIUM 40 MG TAB PO SCH (09:14)
[2018-08-07] MEDS: DULoxetine 60 MG CAP PO SCH (09:14)
[2018-08-07] MEDS: ACYCLOVIR 400 MG TAB PO SCH ×3 (09:14→22:36)
[2018-08-07] MEDS: MUPIROCIN 2% 22 GM OINT NS SCH (09:15)
[2018-08-07] MEDS: TOPIRAMATE 100 MG TAB PO SCH (09:28)
--- NOTE | 2018-08-07 12:18 | POSTANESTH ---
Post Anesthetic Evaluation Cardiovascular Status: Normal, Stable Respiratory Status: Normal, Stable Level of Consciousness/Mental Status: Can Participate in Eval Pain Control: Adequate, Prn Tx Ordered Nausea/Vomiting Control: Adequate, Prn Tx Ordered Complications Possibly Related to Anesthesia: None Noted
--- NOTE | 2018-08-07 15:04 | CPEKG ---
Test Reason : OPEN Blood Pressure : / mmHG Vent. Rate : 055 BPM Atrial Rate : 095 BPM P-R Int : 055 ms QRS Dur : 081 ms QT Int : 443 ms P-R-T Axes : 062 032 044 degrees QTc Int : 424 ms Sinus rhythm Atrial premature complexes Second deg AVB, Mobitz I (Wenckebach) Minimal ST depression, anterolateral leads Confirmed by Mark Dillon ([id number]) on 08/07/2018 3:03:37 PM Referred By: Amadeo Gibson Confirmed By:Mark Dillon
[2018-08-07] MEDS: traZODone 50 MG TAB PO SCH (22:36)
[2018-08-08] MEDS: guaiFENesin 600 MG TAB.ER PO SCH ×3 (01:38→20:26)
[2018-08-08] MEDS: HYDROCODONE/APAP 5/325 TAB PO PRN ×2 (03:58→15:42)
--- NOTE | 2018-08-08 08:08 | SOAPPROG ---
SOAP Progress Note Assessment/Plan: POD #3: robotic assisted mitral valve repair, P2 rsxn with #28 Physio ring annuloplasty Sx severe MR s/p MICS repair. Antithrombotic prophylaxis with ASA alone as per Dr Gibson protocol. Postoperative second degree AV block type 1 - BB avoided. Moderate TR - Surveillance per cards. DVT prophylaxis - SCDs alone. Disposition - home today with outpatient cardiac rehab. Subjective: Denies pain/SOB. Feels ready to go home. Objective: Vital Signs Temp Pulse Resp BP Pulse Ox 36.9 C 63 18 97/42 L 94 08/08/18 07:17 08/08/18 07:17 08/08/18 07:17 08/08/18 07:17 08/08/18 07:17 Laboratory Results 08/07/18 05:21 08/07/18 05:21 08/07/18 08/08/18 08/09/18 05:59 05:59 05:59 Intake Total 715 1200 Output Total 150 1300 Balance 565 -100 Physical Exam - Physical Exam General Appearance: WD/WN, alert, no apparent distress EENT: No scleral icterus (R), No scleral icterus (L) Neck: normal inspection Respiratory: No respiratory distress Cardiac/Chest: regular rate, rhythm, bradycardia Abdomen: non-tender, soft, No distended Skin: normal color, warm/dry Extremities: No pedal edema Neuro/Psych: no motor/sensory deficits, alert, normal mood/affect, oriented x 3 ICD10 Worksheet Patient Problems: Problems Problem Status Onset Acute blood loss anemia Acute S/P MVR (mitral valve repair) Acute ~08/05/18 Tricuspid regurgitation Acute Mitral regurgitation Acute
[2018-08-08] MEDS: ASPIRIN 325 MG TAB PO SCH (09:10)
[2018-08-08] MEDS: DULoxetine 60 MG CAP PO SCH (09:10)
[2018-08-08] MEDS: ACYCLOVIR 400 MG TAB PO SCH ×3 (09:10→20:27)
[2018-08-08] MEDS: PANTOPRAZOLE SODIUM 40 MG TAB PO SCH (09:10)
[2018-08-08] MEDS: SENNOSIDES/DOCUSATE SODIUM TAB PO SCH ×2 (09:50→20:25)
[2018-08-08] MEDS: METOPROLOL TARTRATE 25 MG TAB PO SCH ×2 (10:24→20:27)
--- NOTE | 2018-08-08 11:20 | PDCARPN ---
Cardiology Progress Note Assessment/Plan: Assessment: POD 3 MItral repair and annuloplasty ring Wenkebach hx of svt sp ablation new chest pressure and sob Plan: -echocardiogram -cxr pa and lateral -change dressing to reduce drainage on to her pants -Metoprolol Tartrate 12.5 mg bid -encourage ambulation -Will follow 08/08/18 11:18 Subjective: Sana is POD 3 robotic assisted, minimally invasive robotically assisted Mitral Valve repair and annuloplasty ring. Tele demontrates intermittant, asymptomatic Wenkebach. No significant pauses. No afib or SVT. She complains of new onset of chest discomfort and pressure which is new as of this AM and some mild sob. She has some drainage from surgical site. No palpitaitons, dizziness or syncope. NO edema. Objective: Vital Signs (8 Hrs) Temp Pulse Resp BP Pulse Ox 08/08/18 10:24 74 109/59 L 08/08/18 07:17 36.9 C 63 18 97/42 L 94 08/08/18 04:00 36.9 C 90 16 143/78 H 94 Intake/Output (24 Hrs) 08/07/18 08/08/18 08/09/18 05:59 05:59 05:59 Intake Total 715 1200 Output Total 150 1300 100 Balance 565 -100 -100 Intake: Oral (ml) 500 1200 IV Intake (ml) 200 IV Infused (ml) 15 DOPamine/DEXTROSE 250 ml 15 @ Titrate IV CONT WILLI Rx# :[id number] Output: Urine (ml) 150 1300 100 Catheter 150 Toilet 1300 100 Other: Weight 51 kg 53 kg 50.031 kg Number of Voids Toilet 2 1 1 Number of Stools Toilet 0 Result Diagrams: 08/07/18 05:21 08/07/18 05:21 - Physical Exam Constitutional: WDWN Ears, Nose, Mouth, Throat: moist mucous membranes Cardiovascular: regular rate and rhythm, no murmurs, no rubs, no gallops Respiratory: clear to auscultate bilat Neurologic: AAOx3, CN II-XII grossly intact Psychiatric: cooperative, interactive, following commands ICD10 Worksheet Patient Problems: Problems Problem Status Onset Acute blood loss anemia Acute S/P MVR (mitral valve repair) Acute ~08/05/18 Tricuspid regurgitation Acute Mitral regurgitation Acute
[2018-08-08] MEDS: TOPIRAMATE 100 MG TAB PO SCH (12:39)
--- NOTE | 2018-08-08 15:57 | ECHO ---
[email or web address] [address] [address] Main: [phone] Fax: Transthoracic Echocardiogram Name: JC RUSSO MR#: [id number] Study Date: 08/08/2018 Study Time: 12:03 PM Date of : 1950 Age: 68 year(s) Height: 160 cm (63 in.) Weight: 49.9 kg (110 lb.) BSA: 1.5 m2 Gender: Female Examination: Echo Indication: s/p MVR and new onset of chest pressure and sob Image Quality: Adequate Contrast: Requested by: Papito Small BP: 109 mmHg/59 mmHg Heart Rate: Rhythm: Indication: s/p MVR and new onset of chest pressure and sob Procedure Staff Guest Service Representative: Aurea Laurent RDCS Reading Physician: Jose L Kruger MD Requesting Provider: Measurements: Chambers Valvular Assessment AV/MV Valvular Assessment TV/PV Normal Normal Normal Name Value Range Name Value Range Name Value Range Ao Tess (2D): 3.0 cm (1.4 cm-2.6 AV Vmax: 1.10 m/s (1 m/s-1.7 TR Vmax: 2.55 mm/s ( - ) cm) m/s) TR PGmax: 26 mmHg ( - ) IVSd (2D): 1.1 cm (0.6 cm-1.1 AV maxP mmHg ( - ) syst. PAP: 31 mmHg ( - ) cm) AV meanP mmHg ( - ) PV Vmax: 0.72 m/s (0.6 m/s-0.9 LVDd (2D): 4.2 cm (3.9 cm-5.3 DAVID (VTI): 2.6 cm ( - ) m/s) cm) MV E Vmax: 1.27 m/s ( - ) PV PGmax: 2 mmHg ( - ) LVDs (2D): 2.6 cm (2.1 cm-4 MV A Vmax: 1.02 m/s ( - ) cm) MV E/A: 1.25 ( - ) LVPWd (2D): 1.2 cm ( - ) MV meanP mmHg ( - ) LVOTd 1.9 cm 1.9 cm mm MV PHT: 0.074 s ( - ) LVEF (BP): 63 % (>=55 %) MVA (Vmax): 1.0 m/s ( - ) RVDd(2D): 3.5 cm (1.9 cm-3.8 cmmm) MVA (PHT): 3.0 s ( - ) Continued Measurements: Chambers Valvular Assessment AV/MV Valvular Assessment TV/PV Name Value Name Value Name Value LADs: 3.3 cm MV DecTime: 275 m/s CVP (est.): 5 mmHg LADs Lon.3 cm MV VTI: 63.40 cm LA Area: 13.8 cm2 LA Volume: 39 ml LA Volume Index: 26.0 ml/m2 RA Area: 14.3 cm2 Patient: JC RUSSO Study Date: 08/08/2018 Page 1 of 2 12:03 PM Additional Vessels Name Value Ao Ascendin.8 cm Inferior Vena Cava: 1.0 cm Findings: Left Ventricle: Normal size left ventricle. Borderline concentric LV hypertrophy. Normal global systolic LV function. EF is 63 %. No regional wall motion abnormality. Unable to accurately assess diastolic function due to mitral valve interference. Right Ventricle: Normal size right ventricle. Normal RV function. Left Atrium: The left atrium is normal in size. Right Atrium: The right atrium is normal in size. Mitral Valve: A bioprosthetic mitral valve is in place.. The mitral valve prosthesis exhibits normal function. The prosthetic mitral valve is normal. Prosthetic mitral valve orifice motion is normal. No MV prosthesis regurgitation. Aortic Valve: The aortic valve is tri-leaflet. There is no significant aortic valve regurgitation. No aortic valve stenosis is present. Tricuspid Valve: The tricuspid valve is normal in appearance and function. Mild to moderate tricuspid valve regurgitation. The pulmonary artery pressure is normal. Right ventricular systolic pressure measures 31mmHg. Pulmonic Valve: The pulmonic valve is normal in appearance and function. Mild pulmonic valve regurgitation is noted. Aorta: The aorta is normal. Normal size aortic root measuring 3.0 cm. Normal size ascending aorta measuring 2.8 cm. IVC: The IVC is normal sized. Pericardium: No pericardial effusion. Exam Comments: Some apical imaging foreshortened due to available windows. (No Signature Object) Patient: JC RUSSO Study Date: 08/08/2018 Page 2 of 2 12:03 PM [id number]
[2018-08-08] MEDS: traZODone 50 MG TAB PO SCH (20:26)
[2018-08-09] MEDS: HYDROCODONE/APAP 5/325 TAB PO PRN ×2 (05:57→12:13)
--- NOTE | 2018-08-09 07:45 | SOAPPROG ---
SOAP Progress Note Assessment/Plan: POD #4: robotic assisted mitral valve repair, P2 rsxn with #28 Physio ring annuloplasty Sx severe MR s/p MICS repair. Antithrombotic prophylaxis with ASA alone as per Dr Gibson protocol. New-onset SOB/CP yesterday. Echo yesterday demonstrated normal LVEF and normal MV prosthesis. CXR w trace b/l eff. Will recheck H/H as potential cause of SOB. Postoperative second degree AV block type 1 - tolerating low-dose BB. Tele overnight appears mostly 1st degree AVB with rare PVCs and rare Wenkebach. Moderate TR - Surveillance per cards. DVT prophylaxis - SCDs alone. Disposition - Check H/H Anticipate requiring home oxygen since she lives at 9k ft in [facility] D/w Melissa Small & Pravin re: discharge today with o/p rehab Subjective: No complaints. Ready for discharge. Objective: Vital Signs Temp Pulse Resp BP Pulse Ox 36.8 C 78 17 105/59 L 98 08/09/18 04:00 08/09/18 04:00 08/09/18 04:00 08/09/18 04:00 08/09/18 04:00 Laboratory Results 08/07/18 05:21 08/07/18 05:21 08/08/18 08/09/18 08/10/18 05:59 05:59 05:59 Intake Total 1200 1210 Output Total 1300 775 Balance -100 435 - Physical Exam General Appearance: WD/WN, alert, no apparent distress EENT: No scleral icterus (R), No scleral icterus (L) Neck: normal inspection Respiratory: No respiratory distress Cardiac/Chest: 1st degree AVB, rhythm, bradycardia Abdomen: non-tender, soft, No distended Skin: normal color, warm/dry Extremities: No pedal edema Neuro/Psych: no motor/sensory deficits, alert, normal mood/affect, oriented x 3 All incisions CDI ICD10 Worksheet Patient Problems: Problems Problem Status Onset Acute blood loss anemia Acute S/P MVR (mitral valve repair) Acute ~08/05/18 Tricuspid regurgitation Acute Mitral regurgitation Acute
[2018-08-09 08:28] VITALS: BP 119/70
[2018-08-09] MEDS: DULoxetine 60 MG CAP PO SCH (09:17)
[2018-08-09] MEDS: ACYCLOVIR 400 MG TAB PO SCH (09:17)
[2018-08-09] MEDS: SENNOSIDES/DOCUSATE SODIUM TAB PO SCH (09:18)
[2018-08-09] MEDS: guaiFENesin 600 MG TAB.ER PO SCH (09:18)
[2018-08-09] MEDS: METOPROLOL TARTRATE 25 MG TAB PO SCH (09:18)
[2018-08-09] MEDS: TOPIRAMATE 100 MG TAB PO SCH (09:18)
[2018-08-09] MEDS: PANTOPRAZOLE SODIUM 40 MG TAB PO SCH (09:19)
[2018-08-09] MEDS: ASPIRIN 325 MG TAB PO SCH (09:19)
--- NOTE | 2018-08-09 09:47 | PDHOMEO2F ---
Home Oxygen Face to Face Home Orders: I certify that a physician or a nurse practitioner or physician's esol teacher assistant has had a [id number] encounter with this patient on the date of this order due to the diagnosis listed, which relates to the primary reason the patient requires home oxygen. Alternative treatments have been tried, or considered, and deemed ineffective. It is anticipated that supplemental oxygen will result in improvement with treatment. Home oxygen qualifying diagnosis: preexisting pulmonary disease, valvular heart disease s/p MVR SpO2 on room air (%): 86 Frequency of home oxygen needed: continuous Home oxygen liters per minute: 1 L, titrate to keep SpO2 >90 Home oxygen delivery device: nasal cannula Concentrator: Yes E-tanks for mobility and back up: Yes If ordering portable O2, is the patient mobile in the home?: Yes I certify that, based on these findings, the home oxygen is medically necessary for this patient for the following length of time. Length of time home oxygen needed: 1 month
--- NOTE | 2018-08-09 10:53 | PDDCSUM ---
Discharge Summary Discharge Summary: ADMISSION DATE: 08/05/18 DISCHARGE DATE: 08/09/18 ADMISSION DIAGNOSES 1. Severe mitral regurgitation 2. Moderate tricuspid regurgitation DISCHARGE DIAGNOSES 3. As above 4. Acute post-op blood loss anemia 5. Post-op second degree AV block type 1 PROCEDURES 08/05/18 (Arthur): robotic assisted mitral valve repair, P2 rsxn with #28 Physio ring annuloplasty HPI 68F admitted electively for MV repair. HOSPITAL COURSE BY PROBLEM LIST 1. Severe mitral regurgitation - s/p repair. Thromboprophylaxis with ASA 325 mg , duration to be determined. 2. Moderate tricuspid regurgitation - stable with further management as per cardiology. 3. Acute post-op blood loss anemia - stable without the need for transfusions. 4. Post-op second degree AV block type 1 - beta-long tolerated. Further mgmt as per cardiology. CONDITION Good DISPOSITION Home, self-care PERTINENT DISCHARGE CLINICAL INFORMATION Vitals: 119/70, 86 SR, 98% on 1 L/minute O2, euvolemic Exam: NAD, SR, No resp distress, ND, soft, NTP, BLE without edema ACTIVITY Pt was instructed on activity limitations and which problems to call [facility] with. Please see Discharge Plan in chart for specifics. DISCHARGE MEDICATIONS As per Home Medication List in chart PENDING STUDIES/LABS 1. CXR prior to surgical follow-up FOLLOW-UP 1. Amadeo Gibson (CT Surgery), 08/16/18, 10:00 AM 2. Donald Small (Cardiology), as scheduled
--- NOTE | 2018-08-19 10:59 | PQFORM ---
PHYSICIAN QUERY FORM Needs Your Response This query form is being sent to you to assure this patient record is coded properly. Please respond to the question below: FRUIT FARMWORKER QUESTION: Dear Dr. Gibson, Given the results in the Pathology Report does the diagnosis rule out the presence of Rheumatic Mitral Valve disorder? __x___Yes No Unable to determine Other more appropriate diagnosis (Please specify) Thank you Reyna Masters, MANAGER [employer] HIM/Coding Dept. INSTRUCTIONS FOR RESPONSE: Answer question by clicking on the "Edit Document" button. Move cursor to area below the stars. When complete, hit "Save." Click on the "Sign" button, then click "Sign" again. Type in your PIN and hit "Enter." MTDD
== END 2018-08-09 14:30 | disposition home or self-care (01) | DRG 219 ==
LOC: F1N 07:23 → F2N 08:16 → F2W 08-07 13:00
PROVIDERS: ADMIT Thoracic Surgery (Cardiothoracic Vascular Surgery); ATTEND Thoracic Surgery (Cardiothoracic Vascular Surgery)
DX: I34.0 Nonrheumatic mitral (valve) insufficiency (principal); I51.1 Rupture of chordae tendineae, not elsewhere classified; D62 Acute posthemorrhagic anemia; I36.1 Nonrheumatic tricuspid (valve) insufficiency; I44.1 Atrioventricular block, second degree; J45.998 Other asthma; B00.1 Herpesviral vesicular dermatitis; D36.10 Benign neoplasm of peripheral nerves and autonomic nervous system, unspecified
CPT/HCPCS: 82435-PO; 82565-PO; 82947-PO; 83605-ER; 84132-PO; 84295-PO; 84520-PO; 85014-ER; 97110-GP; 97116-GP; 97161-GP; 97165-GO; 97530-GO; 97535-GO; J0153; J0282; J0690; J1100; J1250; J1265; J1644; J1815; J1940; J2001; J2150; J2250; J2260; J2270; J2370; J2704; J2720; J2930; J3010; J3475; J3480; P9041

== ENCOUNTER → 2018-08-16 | Outpatient (CLI) | payer OTHER | LOC: FIMAGING 09:09 ==